=== PATIENT | female | born 1950 | race Caucasian/White ===

== ENCOUNTER → 2018-08-17 | Outpatient (CLI) | payer MEDICARE, OTHER ==
--- NOTE | 2018-08-17 13:04 | CT ---
EXAMINATION TYPE: CT chest wo con DATE OF EXAM: 08/17/2018 COMPARISON: Chest x-ray October 11, 2010 HISTORY: interstitial pulmonary disease CT DLP: 155 mGycm. Automated Exposure Control for Dose Reduction was Utilized. TECHNIQUE: CT scan of the thorax is performed without IV contrast. High-resolution protocol with 1 m m sequences obtained in 10 mm intervals in both prone and supine positioning. FINDINGS: LUNGS: Mild to moderate by apical pleural/parenchymal scarring is present. There is mild linear scarr ing in the lingula near diaphragm. No additional suspicious reticulation or fibrosis is identified bi laterally. No pleural effusion or pneumothorax is seen. No suspicious masses are identified. No signi ficant bronchiectasis. MEDIASTINUM: Lack of IV contrast is noted to limit evaluation for mediastinal and especially hilar ad enopathy. There are no definitive greater than 1 cm hilar or mediastinal lymph nodes. No cardiomega ly or pericardial effusion is seen. Post CABG changes with mediastinal clips and sternal wires is pre sent. There is dual lead pacemaker noted. Ascending aorta measures up to 3.7 cm in diameter. Incident al 1 cm right thyroid nodule axial image 4 warrants follow-up. There is moderate calcified plaque of aorta extending into branch vessels. OTHER: Moderate to severe multilevel spurring in the thoracic spine is noted. Levoconvex scoliosis c entered upper to mid lumbar spine on localizer is seen. Cholecystectomy clips are noted on localizer. IMPRESSION: Mild to moderate biapical parenchymal scarring. Mild linear lingular scarring. No signifi cant interstitial scarring or reticulation otherwise bilaterally. No acute pulmonary process noted.
== END | disposition home or self-care (01) ==
LOC: RADCTMAIN 11:59
PROVIDERS: ATTEND Internal Medicine Critical Care Medicine
DX: J98.4 Other disorders of lung (principal)
CPT/HCPCS: 71250

== ENCOUNTER 2018-12-07 18:49 | Inpatient (IN) | payer MEDICARE, OTHER ==
--- NOTE | 2018-12-07 20:49 | ED ---
General Adult HPI - General Chief complaint: Recheck/Abnormal Lab/Rx Stated complaint: Dehydrated, weakness Time Seen by Provider: 12/07/18 18:58 Source: patient Mode of arrival: EMS Limitations: no limitations - History of Present Illness Initial comments: 68-year-old female patient presents to the emergency department today as a transfer from [facility] for evaluation of generalized weakness, anemia , dehydration. Patient has been having increased intermittent diarrhea over the last couple of weeks after taking antibiotics for dental infection. Patient presented to the ER today because she was unable to wheel herself in her wheelchair due to weakness. Patient states she is also been feeling dizzy. Patient does have history of iron deficiency anemia, has had have blood transfusion in the past. Hemoglobin was low at 8.6 at the other hospital. Patient's BUN and creatinine were also elevated. She denies any hematochezia or melena. Denies any hematemesis. Patient denies any recent rash, fever, chills, shortness breath, chest pain, abdominal pain, nausea, vomiting, diarrhea , constipation, back pain, numbness, tingling, hematuria, dysuria, urinary urgency, urinary frequency, headache, visual changes, or any other complaints. - Related Data Home Medications Medication Instructions Recorded Confirmed DULoxetine HCL [Cymbalta] 60 mg PO DAILY 09/09/17 12/07/18 Ezetimibe [Zetia] 10 mg PO DAILY 09/09/17 12/07/18 Ferrous Sulfate [Iron (65 MG 325 mg PO BID 09/09/17 12/07/18 Elemental)] Isosorbide Mononitrate ER [Imdur] 60 mg PO DAILY 09/09/17 12/07/18 Losartan Potassium 100 mg PO DAILY 09/09/17 12/07/18 Omeprazole 20 mg PO BID 09/09/17 12/07/18 Ranitidine HCl [Zantac] 150 mg PO BID 09/09/17 12/07/18 Simvastatin [Zocor] 40 mg PO HS 09/09/17 12/07/18 Clopidogrel Bisulfate [Plavix] 75 mg PO DAILY 12/07/18 12/07/18 Metoprolol Tartrate [Lopressor] 50 mg PO BID 12/07/18 12/07/18 amLODIPine [Norvasc] 10 mg PO DAILY 12/07/18 12/07/18 metFORMIN HCL 1,000 mg PO BID 12/07/18 12/07/18 Allergies Allergy/AdvReac Type Severity Reaction Status Date / Time erythromycin base AdvReac Rash/Hives Verified 12/07/18 20:11 gabapentin AdvReac Rash/Hives Verified 12/07/18 20:11 kiwi AdvReac Abdominal Verified 12/07/18 20:11 Pain latex AdvReac Rash/Hives Verified 12/07/18 20:11 Review of Systems ROS Statement: Those systems with pertinent positive or pertinent negative responses have been documented in the HPI. ROS Other: All systems not noted in ROS Statement are negative. Past Medical History Past Medical History: Blood Disorder, Coronary Artery Disease (CAD), Chest Pain / Angina, Diabetes Mellitus, GERD/Reflux, GI Bleed, Hyperlipidemia, Hypertension , Memory Impairment, Thyroid Disorder Additional Past Medical History / Comment(s): Sclerosis, Raynauds, Iron Deficiency Anemia, reoccuring urinary tract infections, anemia, bronchitis, pt. states she recently has noticed she is having some short term memory loss as well as difficulty swallowing, raynauds syndrome History of Any Multi-Drug Resistant Organisms: None Reported Past Surgical History: Coronary Bypass/CABG, Heart Catheterization, Heart Catheterization With Stent, Hysterectomy, Pacemaker Additional Past Surgical History / Comment(s): Bilateral BKA, Triple Bypass 2011 , Pacemaker Past Anesthesia/Blood Transfusion Reactions: No Reported Reaction Date of Last Stent Placement:: w Type of Cardiac Device: Permanent Pacemaker Device Placement Date:: unknown Past Psychological History: Anxiety, Depression Smoking Status: Never smoker - Past Family History Mother Family Medical History: Cancer Additional Family Medical History / Comment(s): colon cancer Father Family Medical History: Myocardial Infarction ([place]) General Exam Limitations: no limitations General appearance: alert, in no apparent distress, other (Physical well- developed, well-nourished elderly female patient in no acute distress. Vital signs upon presentation are temperature 98.4F, pulse 102, respirations 18, blood pressure 120/59, pulse ox 98% on room air) Eye exam: Present: normal appearance, PERRL, EOMI. Absent: scleral icterus, conjunctival injection, periorbital swelling ENT exam: Present: normal exam, normal oropharynx, mucous membranes moist Respiratory exam: Present: normal lung sounds bilaterally. Absent: respiratory distress, wheezes, rales, rhonchi, stridor Cardiovascular Exam: Present: regular rate, normal rhythm, normal heart sounds. Absent: systolic murmur, diastolic murmur, rubs, gallop, clicks GI/Abdominal exam: Present: soft, normal bowel sounds. Absent: distended, tenderness, guarding, rebound, rigid Neurological exam: Present: alert, oriented X3, CN II-XII intact Psychiatric exam: Present: normal affect, normal mood Skin exam: Present: warm, dry, intact, normal color. Absent: rash Course Vital Signs 12/07/18 12/07/18 12/07/18 18:57 21:29 23:11 Temperature 98.4 F 97.3 F L Pulse Rate 102 H 99 103 H Respiratory 18 18 18 Rate Blood Pressure 120/59 119/58 120/55 O2 Sat by Pulse 98 97 98 Oximetry Medical Decision Making - Medical Decision Making 68-year-old female patient presents to the emergency department today as a transfer from [facility] for anemia, dehydration, and weakness. Physical examination did reveal generalized weakness and skin pallor. Abdomen was soft and nontender. Patient did report diarrhea frequently since taking antibiotics for dental infection, C. diff has been ordered. Labs reviewed and did reveal a hemoglobin of 7.7 which is decreased from 8.6 at [facility]. BUN and creatinine have improved from 44-32, creatinine is now normal. My attending Dr. Logan was in to see and evaluate the patient. He did discuss the case with Dr. Baig. Plan was to discharge patient home however both patient and family member are very uncomfortable with discharge given the degree of weakness and the hgb level. Patient will be admitted for observation. We will provide IV hydration to correct dehydration and repeat labs in the morning. - Lab Data Result diagrams: 12/07/18 20:19 12/07/18 20:19 Lab Results 12/07/18 12/07/18 Range/Units 20:19 20: WBC 5.2 (3.8-10.6) k/uL RBC 3.23 L (3.80-5.40) m/uL Hgb 7.7 L (11.4-16.0) gm/dL Hct 26.6 L (34.0-46.0) % MCV 82.3 (80.0-100.0) fL MCH 24.0 L (25.0-35.0) pg MCHC 29.1 L (31.0-37.0) g/dL RDW 17.9 H (11.5-15.5) % Plt Count 258 (150-450) k/uL Neutrophils % 71 % Lymphocytes % 19 % Monocytes % 5 % Eosinophils % 2 % Basophils % 1 % Neutrophils # 3.6 (1.3-7.7) k/uL Lymphocytes # 1.0 (1.0-4.8) k/uL Monocytes # 0.3 (0-1.0) k/uL Eosinophils # 0.1 (0-0.7) k/uL Basophils # 0.0 (0-0.2) k/uL Manual Slide Review Performed Polychromasia Present Hypochromasia Marked Poikilocytosis Moderate Poikilocytosis (manual Present Anisocytosis Slight Ovalocytes Present Sodium 142 (137-145) mmol/L Potassium 4.3 (3.5-5.1) mmol/L Chloride 116 H (98-107) mmol/L Carbon Dioxide 15 L (22-30) mmol/L Anion Gap 11 mmol/L BUN 32 H (7-17) mg/dL Creatinine 0.92 (0.52-1.04) mg/dL Est GFR (CKD-EPI)AfAm 74 (>60 ml/min/1.73 sqM) Est GFR (CKD-EPI)NonAf 64 (>60 ml/min/1.73 sqM) Glucose 100 H (74-99) mg/dL Calcium 8.4 (8.4-10.2) mg/dL Total Bilirubin 0.4 (0.2-1.3) mg/dL AST 22 (14-36) U/L ALT 25 (9-52) U/L Alkaline Phosphatase 76 (38-126) U/L Total Protein 5.6 L (6.3-8.2) g/dL Albumin 3.2 L (3.5-5.0) g/dL Disposition Clinical Impression: Symptomatic anemia, Dehydration, Diarrhea Disposition: ADMITTED IP TO THIS [facility] Condition: Serious Decision to Admit Reason: Admit from EC Decision Date: 12/07/18 Decision Time: 22:40
[2018-12-07 20:54] LABS: Albumin 3.2 g/dL (3.5-5.0); Calcium 8.4 mg/dL (8.4-10.2); Potassium 4.3 mmol/L (3.5-5.1); Total Bilirubin 0.4 mg/dL (0.2-1.3); Total Protein 5.6 g/dL (6.3-8.2)
[2018-12-07 21:03] LABS: Anisocytosis Slight; Basophils % (A) 1 %; Eosinophils # (A) 0.1 k/uL (0-0.7); Eosinophils % (A) 2 %; HCT 26.6 % (34.0-46.0); HGB 7.7 gm/dL (11.4-16.0); Hypochromasia Marked; Lymphocytes % (A) 19 %; MCHC 29.1 g/dL (31.0-37.0); MCV 82.3 fL (80.0-100.0); Mean Platelet Volume 7.6; Monocytes # (A) 0.3 k/uL (0-1.0); Monocytes % (A) 5 %; Neutrophils # (A) 3.6 k/uL (1.3-7.7); Neutrophils % (A) 71 %; Platelet Count 258 k/uL (150-450); Poikilocytosis Moderate; RBC 3.23 m/uL (3.80-5.40); RDW 17.9 % (11.5-15.5); WBC 5.2 k/uL (3.8-10.6)
[2018-12-07 21:32] LABS: Ovalocytes Present; Poikilocytosis (M) Present; Polychromasia Present
[2018-12-07] MEDS ORDERED: NALOXONE 0.4 MG/ML 1 ML VIAL IV PRN (22:40)
[2018-12-07] MEDS ORDERED: ACETAMINOPHEN TAB 325 MG TAB PO PRN (22:40)
[2018-12-07] MEDS: SODIUM CHLORIDE 0.9% 1,000 ML IV SCH (23:10)
[2018-12-08 07:21] LABS: Glucose,Whole Blood 81 mg/dL (75-99)
[2018-12-08 08:16] LABS: Anisocytosis Slight; Basophils % (A) 0 %; Eosinophils # (A) 0.2 k/uL (0-0.7); Eosinophils % (A) 4 %; HCT 26.9 % (34.0-46.0); HGB 7.7 gm/dL (11.4-16.0); Hypochromasia Marked; Lymphocytes % (A) 18 %; MCH 24.6 pg (25.0-35.0); MCHC 28.7 g/dL (31.0-37.0); MCV 85.6 fL (80.0-100.0); Mean Platelet Volume 7.1; Monocytes # (A) 0.4 k/uL (0-1.0); Monocytes % (A) 7 %; Neutrophils # (A) 3.6 k/uL (1.3-7.7); Neutrophils % (A) 68 %; Platelet Count 285 k/uL (150-450); Poikilocytosis Moderate; RBC 3.15 m/uL (3.80-5.40); RDW 17.6 % (11.5-15.5); WBC 5.3 k/uL (3.8-10.6)
[2018-12-08] MEDS: INSULIN ASPART (NovoLOG) 100 UNIT/ML VIAL SQ SCH ×4 (09:15→22:33)
[2018-12-08] MEDS: SODIUM CHLORIDE 0.9% 1,000 ML IV SCH ×2 (09:36→22:43)
[2018-12-08 11:50] LABS: Glucose,Whole Blood 92 mg/dL (75-99)
[2018-12-08 12:06] VITALS: BMI 49.1
[2018-12-08] MEDS: METOPROLOL TARTRATE 50 MG TAB PO SCH ×2 (12:34→22:22)
[2018-12-08] MEDS: FAMOTIDINE 20 MG TAB PO SCH ×2 (12:34→22:06)
[2018-12-08] MEDS: metFORMIN 500 MG TAB PO SCH ×2 (12:34→22:06)
[2018-12-08] MEDS: LOSARTAN 50 MG TAB PO SCH (12:35)
[2018-12-08] MEDS: DULoxetine HCL 60 MG CAPSULE.DR PO SCH (12:35)
[2018-12-08] MEDS: amLODIPine 10 MG TAB PO SCH (12:35)
[2018-12-08] MEDS: ISOSORBIDE MONONITRATE ER 60 MG TAB.ER.24H PO SCH (12:35)
[2018-12-08] MEDS: CLOPIDOGREL 75 MG TAB PO SCH (12:35)
[2018-12-08] MEDS: PANTOPRAZOLE 40 MG TABLET PO SCH ×2 (12:35→22:27)
[2018-12-08] MEDS: EZETIMIBE 10 MG TAB PO SCH (12:36)
[2018-12-08 15:14] LABS: Reticulocyte % 2.1 % (0.5-2.0)
[2018-12-08 17:05] LABS: Glucose,Whole Blood 132 mg/dL (75-99)
[2018-12-08 18:45] LABS: Iron Saturation 2.86 (12.00-45.00)
--- NOTE | 2018-12-08 20:00 | P.CONS ---
History of Present Illness - Reason for Consult Consult date: 12/08/18 anemia Requesting physician: Malcolm Baig - History of Present Illness Ms. Cervantes is a very pleasant 68-year-old female transferred from [place] where she was admitted for progressive weakness and fatigue. The patient recently took antibiotics for a dental infection, was experiencing diarrhea and over the last several days she became progressively weaker leading her to seek medical attention. Patient was found to be anemic so she was admitted and transferred. Patient has had intermittent episodes of anemia. There is documentation of Hgb in the 7-8 range in this EMR since 2016. Patient states being anemic since at least 2012, diagnosed with iron deficiency, followed for a very long time with Dr. Alan for gastrointestinal bleeding/history of angioectasias. Patient's last colonoscopy was in [place] in 2015 or , her most recent EGD was in 2016. Patient states that her stools used to be green to black due to the oral iron, she has noticed lately her stools are more brown. Patient denies any nose bleeding, gum bleeding, hemoptysis, hematuria, in October she states her hemoglobin was in the 11 range, she has been holding a decent hemoglobin between 11 and 12 for quite some time. Patient is on Plavix for cardiac condition. Patient's mother had colon cancer at 60, her sister had colon cancer diagnosed at 50, she had a brother with esophageal cancer at age 60. Review of Systems 14 point review of systems is negative except as stated in HPI Past Medical History Past Medical History: Blood Disorder, Coronary Artery Disease (CAD), Chest Pain / Angina, Diabetes Mellitus, GERD/Reflux, GI Bleed, Hyperlipidemia, Hypertension , Memory Impairment, Thyroid Disorder Additional Past Medical History / Comment(s): Sclerosis, Raynauds, Iron Deficiency Anemia, reoccuring urinary tract infections, anemia, bronchitis, pt. states she recently has noticed she is having some short term memory loss as well as difficulty swallowing, raynauds syndrome History of Any Multi-Drug Resistant Organisms: None Reported Past Surgical History: Coronary Bypass/CABG, Heart Catheterization, Heart Catheterization With Stent, Hysterectomy, Pacemaker Additional Past Surgical History / Comment(s): Bilateral BKA, Triple Bypass 2011 , Pacemaker Past Anesthesia/Blood Transfusion Reactions: No Reported Reaction Date of Last Stent Placement:: uknown Type of Cardiac Device: Permanent Pacemaker Device Placement Date:: unknown Past Psychological History: Anxiety, Depression Smoking Status: Never smoker - Past Family History Mother Family Medical History: Cancer Additional Family Medical History / Comment(s): colon cancer Father Family Medical History: Myocardial Infarction ([place]) Medications and Allergies Home Medications Medication Instructions Recorded Confirmed Type DULoxetine HCL [Cymbalta] 60 mg PO DAILY 09/09/17 12/07/18 History Ezetimibe [Zetia] 10 mg PO DAILY 09/09/17 12/07/18 History Ferrous Sulfate [Iron (65 MG 325 mg PO BID 09/09/17 12/07/18 History Elemental)] Isosorbide Mononitrate ER [Imdur] 60 mg PO DAILY 09/09/17 12/07/18 History Losartan Potassium 100 mg PO DAILY 09/09/17 12/07/18 History Omeprazole 20 mg PO BID 09/09/17 12/07/18 History Ranitidine HCl [Zantac] 150 mg PO BID 09/09/17 12/07/18 History Simvastatin [Zocor] 40 mg PO HS 09/09/17 12/07/18 History Clopidogrel Bisulfate [Plavix] 75 mg PO DAILY 12/07/18 12/07/18 History Metoprolol Tartrate [Lopressor] 50 mg PO BID 12/07/18 12/07/18 History amLODIPine [Norvasc] 10 mg PO DAILY 12/07/18 12/07/18 History metFORMIN HCL 1,000 mg PO BID 12/07/18 12/07/18 History Allergies Allergy/AdvReac Type Severity Reaction Status Date / Time erythromycin base AdvReac Rash/Hives Verified 12/07/18 20:11 gabapentin AdvReac Rash/Hives Verified 12/07/18 20:11 kiwi AdvReac Abdominal Verified 12/07/18 20:11 Pain latex AdvReac Rash/Hives Verified 12/07/18 20:11 Physical Exam Vitals: Vital Signs Temp Pulse Pulse Resp BP BP Pulse Ox 12/08/18 15:31 98.2 F 84 18 127/77 12/08/18 15:00 98.8 F 84 17 134/69 97 12/08/18 13:26 98.2 F 90 17 144/79 98 12/08/18 11:21 98.4 F 103 H 16 129/77 97 12/08/18 10:51 98.2 F 109 H 17 147/81 96 12/08/18 10:41 97.8 F 102 H 16 130/76 98 12/08/18 10:38 98.2 F 103 H 17 127/76 12/08/18 07:00 97.5 F L 102 H 16 138/71 99 12/07/18 23:40 97.4 F L 91 16 117/47 98 12/07/18 23:11 97.3 F L 103 H 18 120/55 98 12/07/18 21:29 99 18 119/58 97 Intake and Output 12/08/18 12/08/18 12/08/18 06:59 14:59 22:59 Intake Total 640 810 294 Balance 640 810 294 Intake: Intake, IV Titration 640 Amount Sodium Chloride 0.9% 1, 640 000 ml @ 80 mls/hr IV . [id number] [facility] Rx#:[id number] Oral 500 294 Blood Product 310 Rc Pheresis 2 As3 Unit 310 [id number] Other: Voiding Method Bedpan Bedpan # Voids 2 1 # Bowel Movements 1 Weight 130 kg - Constitutional General appearance: average body habitus, cooperative, no acute distress - EENT Eyes: anicteric sclerae ENT: hearing grossly normal, normal oropharynx - Neck Neck: no lymphadenopathy - Respiratory Respiratory: bilateral: CTA - Cardiovascular Rhythm: regular Heart sounds: normal: S1, S2 Abnormal Heart Sounds: no systolic murmur, no diastolic murmur, no rub, no S3 Gallop, no S4 Gallop, no click, no other leg Peripheral Edema: bilateral: None (bilateral lower extremity amputee) - Gastrointestinal General gastrointestinal: no absent bowel sounds, no decreased bowel sounds, no distended, no hepatomegaly, no hyperactive bowel sounds, normal bowel sounds, no organomegaly, no rigid, no scaphoid, soft, no splenomegaly, no tenderness, no umbilical hernia, no ventral hernia - Integumentary Integumentary: pale - Neurologic Neurologic: CNII-XII intact - Musculoskeletal Musculoskeletal: generalized weakness, strength equal bilaterally - Psychiatric Psychiatric: A&O x's 3, appropriate affect, intact judgment & insight Results CBC & Chem 7: 12/08/18 07:45 12/07/18 20:19 Labs: Abnormal Lab Results - Last 24 Hours (Table) 12/07/18 12/07/18 12/08/18 Range/Units 20:19 20:19 00:45 RBC 3.23 L (3.80-5.40) m/uL Hgb 7.7 L (11.4-16.0) gm/dL Hct 26.6 L (34.0-46.0) % MCH 24.0 L (25.0-35.0) pg MCHC 29.1 L (31.0-37.0) g/dL RDW 17.9 H (11.5-15.5) % Retic Count (0.5-2.0) % Chloride 116 H (98-107) mmol/L Carbon Dioxide 15 L (22-30) mmol/L BUN 32 H (7-17) mg/dL Glucose 100 H (74-99) mg/dL POC Glucose (mg/dL) (75-99) mg/dL Iron (50-170) ug/dL Iron Saturation (12.00-45.00) Total Protein 5.6 L (6.3-8.2) g/dL Albumin 3.2 L (3.5-5.0) g/dL Crossmatch See Detail 12/08/18 12/08/18 12/08/18 Range/Units 07:45 07:45 07:45 RBC 3.15 L (3.80-5.40) m/uL Hgb 7.7 L (11.4-16.0) gm/dL Hct 26.9 L (34.0-46.0) % MCH 24.6 L (25.0-35.0) pg MCHC 28.7 L (31.0-37.0) g/dL RDW 17.6 H (11.5-15.5) % Retic Count 2.1 H (0.5-2.0) % Chloride (98-107) mmol/L Carbon Dioxide (22-30) mmol/L BUN (7-17) mg/dL Glucose (74-99) mg/dL POC Glucose (mg/dL) (75-99) mg/dL Iron 9 L (50-170) ug/dL Iron Saturation 2.86 L (12.00-45.00) Total Protein (6.3-8.2) g/dL Albumin (3.5-5.0) g/dL Crossmatch 12/08/18 Range/Units 17:03 RBC (3.80-5.40) m/uL Hgb (11.4-16.0) gm/dL Hct (34.0-46.0) % MCH (25.0-35.0) pg MCHC (31.0-37.0) g/dL RDW (11.5-15.5) % Retic Count (0.5-2.0) % Chloride (98-107) mmol/L Carbon Dioxide (22-30) mmol/L BUN (7-17) mg/dL Glucose (74-99) mg/dL POC Glucose (mg/dL) 132 H (75-99) mg/dL Iron (50-170) ug/dL Iron Saturation (12.00-45.00) Total Protein (6.3-8.2) g/dL Albumin (3.5-5.0) g/dL Crossmatch Assessment and Plan (1) Normocytic hypochromic anemia Narrative/Plan: Suspect acute drop in patient's hemoglobin may be due to irritation in the gastrointestinal tract from diarrhea. Gastroenterology has been consulted, patient is very familiar with Dr. Alan. We will await her evaluation and recommendations. Patient has been transfused, hemoglobin today is 7.7. Iron studies have been ordered. Patient states that she has had a real allergic reaction to venofer in the past, it was anaphylaxis. We will follow up with patient's iron studies for further discussion as how to best supplement. Current Visit: Yes Status: Chronic Priority: Medium Code(s): D50.9 - IRON DEFICIENCY ANEMIA, UNSPECIFIED SNOMED Code(s): 03217541
[2018-12-08 21:05] LABS: Glucose,Whole Blood 151 mg/dL (75-99)
--- NOTE | 2018-12-08 22:04 | HP ---
HISTORY AND PHYSICAL DATE OF ADMISSION: December 07, 2018. DATE OF SERVICE: December 08, 2018 PRESENTING COMPLAINT: Weak and tired. HISTORY OF PRESENTING COMPLAINT: This is a very pleasant 68-year-old patient who follows with Dr. Soto. The patient has a longstanding history of anemia and has been worked up extensively including by Dr. Alan who 2 years ago did an EGD. The patient also seen by Dr. Taylor from Hematology. Per the patient and daughter, no obvious cause was noted. The patient's hemoglobin was 11.2 in October of this year and was feeling weak and tired, went down to outside hospital. Hemoglobin did drop down to 7.6. The patient has underlying sclerosis and does get a significant epigastric burning. The patient recently ARDS, had some diarrhea, has been feeling more weak and tired and run down around. Given history of coronary artery disease, a unit of blood was ordered earlier and consultation to both Gastroenterology and Hematology was done. Also given IV fluids. Denies any fever and chills. Denies any black stools. REVIEW OF SYSTEMS: CONSTITUTIONAL: Tired, decreased appetite. HEENT: None. RESPIRATORY: None. CARDIOVASCULAR: None. GENITOURINARY: None. MUSCULOSKELETAL: Aches and pains in the joints. DERMATOLOGICAL: Tight fingers PSYCHIATRY: Slightly anxious. NEUROLOGICAL: Anxiety and depression. PAST MEDICAL HISTORY: Coronary artery disease, diabetes, GERD, hyperlipidemia, hypertension, hypothyroid, sclerosis, Raynaud, iron deficiency anemia. PAST SURGICAL HISTORY: Coronary artery bypass, cardiac cath with stent, hysterectomy, bilateral below-knee amputation, triple bypass in 2011, pacemaker. PSYCH HISTORY: Anxiety and depression, lives with her . Does not smoke or drink alcohol. FAMILY HISTORY: Colon cancer. HOME MEDICATIONS: 1. Metformin 1000 mg b.i.d. 2. Norvasc 10 mg p.o. daily. 3. Zocor 40 mg q.h.s. 4. Zantac 150 mg p.o. b.i.d. 5. Omeprazole 20 mg b.i.d. 6. Lopressor 50 mg b.i.d. 7. Losartan 100 mg p.o. daily. 8. Imdur ER 60 mg p.o. daily. 9. Iron 325 p.o. b.i.d. 10.Zetia 10 mg p.o. daily. 11.Cymbalta 60 mg p.o. daily. 12.Plavix 75 mg p.o. daily. ALLERGIES: TO ERYTHROMYCIN, GABAPENTIN, KIWI, LATEX. PHYSICAL EXAMINATION: VITAL SIGNS: On examination vital signs on presentation: Temperature 98.4, pulse 102. Respiration 18, blood pressure 120/59, pulse 98% on room air. GENERAL APPEARANCE: Average build, lying in bed, tired-appearing. EYES: Pupils equal. Conjunctivae pale. HEENT is receding hairline, some telangiectasia on the lips. NECK: JVD not raised. Mass not palpable. Respiratory effort normal. Lungs decreased breath sounds. Slightly decreased breath sounds. CARDIOVASCULAR: First and second sounds normal. No edema. ABDOMEN: Soft, nontender. Liver and spleen not palpable. LYMPHATICS: No lymph nodes palpable in the neck and axilla. PSYCHIATRY: Alert and oriented x3. Mood and affect anxious-appearing. DERMATOLOGICAL: Tightening of skin especially of the fingers. INVESTIGATIONS: White count 5.2, hemoglobin 7.7, platelets 258. Potassium 4.3, BUN 32, creatinine 0.92, albumin 3.2. ASSESSMENT: 1. Acute on chronic normocytic anemia. The patient has had a workup previously. Need to rule out a gastrointestinal bleed. At the same time, immune hemolysis needs to be ruled out. The patient does have a elevated reticulocyte count. 2. Metabolic acidosis. 3. Coronary artery disease with stent. 4. Diabetes mellitus type 2 on oral hypoglycemic. 5. Severe gastroesophageal reflux disease. 6. Hyperlipidemia. 7. Essential hypertension. 8. Scleroderma with systemic features. PLAN: Consultation has been made to Gastroenterology and Hematology. The patient will be transfused blood given her symptoms and underlying coronary artery disease to improve her symptoms. The patient is already on H2 ravi and PPI. PPI also will be given. IV fluids. Care was discussed with the patient and daughter at the bedside. Copy to Dr. Soto. MMODL / IJN: [id number] /
[2018-12-08] MEDS: ATORVASTATIN 20 MG TAB PO SCH (22:05)
[2018-12-08] MEDS: FERROUS SULFATE 325 MG TAB PO SCH (22:30)
[2018-12-09 07:22] LABS: Glucose,Whole Blood 135 mg/dL (75-99)
[2018-12-09 07:28] VITALS: RESP 16
[2018-12-09] MEDS: INSULIN ASPART (NovoLOG) 100 UNIT/ML VIAL SQ SCH ×4 (07:48→21:43)
[2018-12-09] MEDS: LOSARTAN 50 MG TAB PO SCH (07:56)
[2018-12-09] MEDS: FAMOTIDINE 20 MG TAB PO SCH ×2 (07:56→21:48)
[2018-12-09] MEDS: METOPROLOL TARTRATE 50 MG TAB PO SCH ×2 (07:57→21:48)
[2018-12-09] MEDS: PANTOPRAZOLE 40 MG TABLET PO SCH ×2 (07:57→21:48)
[2018-12-09] MEDS: metFORMIN 500 MG TAB PO SCH ×2 (07:57→21:48)
[2018-12-09] MEDS: DULoxetine HCL 60 MG CAPSULE.DR PO SCH (07:57)
[2018-12-09] MEDS: ISOSORBIDE MONONITRATE ER 60 MG TAB.ER.24H PO SCH (07:57)
[2018-12-09] MEDS: FERROUS SULFATE 325 MG TAB PO SCH ×2 (07:57→21:47)
[2018-12-09] MEDS: EZETIMIBE 10 MG TAB PO SCH (07:57)
[2018-12-09] MEDS: CLOPIDOGREL 75 MG TAB PO SCH (07:57)
[2018-12-09] MEDS: amLODIPine 10 MG TAB PO SCH (07:57)
[2018-12-09] MEDS: SODIUM CHLORIDE 0.9% 1,000 ML IV SCH ×2 (07:58→23:57)
[2018-12-09 09:11] LABS: Anisocytosis Slight; Basophils % (A) 0 %; Eosinophils # (A) 0.4 k/uL (0-0.7); Eosinophils % (A) 7 %; HCT 27.1 % (34.0-46.0); HGB 7.9 gm/dL (11.4-16.0); Hypochromasia Marked; Lymphocytes # (A) 0.8 k/uL (1.0-4.8); Lymphocytes % (A) 15 %; MCH 24.6 pg (25.0-35.0); MCHC 29.3 g/dL (31.0-37.0); Mean Platelet Volume 7.8; Monocytes # (A) 0.3 k/uL (0-1.0); Monocytes % (A) 6 %; Neutrophils # (A) 3.8 k/uL (1.3-7.7); Neutrophils % (A) 69 %; Platelet Count 249 k/uL (150-450); Poikilocytosis Moderate; RBC 3.22 m/uL (3.80-5.40); RDW 17.4 % (11.5-15.5); WBC 5.4 k/uL (3.8-10.6)
[2018-12-09 09:19] LABS: Anion Gap 9 mmol/L; Blood Urea Nitrogen 11 mg/dL (7-17); Calcium 8.5 mg/dL (8.4-10.2); Carbon Dioxide 16 mmol/L (22-30); Chloride 116 mmol/L (98-107); Glucose 155 mg/dL (74-99); Potassium 3.9 mmol/L (3.5-5.1); Sodium 141 mmol/L (137-145)
--- NOTE | 2018-12-09 12:13 | P.CONS ---
History of Present Illness - Reason for Consult Consult date: 12/09/18 Anemia Requesting physician: Malcolm Baig - Chief Complaint Weakness anemia dehydration - History of Present Illness 68-year-old female patient of Dr. Soto transferred from [facility] with evaluation for generalized weakness anemia dehydration. Past medical history of bilateral BKA, scleroderma, diabetes, GERD, hyperlipidemia, CAD with PCI stent maintained on Plavix, chronic anemia extensively worked up in the past with EGD colonoscopy without obvious cause, gastric angiectasia in 2012. Intermittent nonbloody diarrhea for the last few weeks after receiving antibiotics for recent dental infection. Denies overt bleeding such as hematemesis hematochezia melena. Denies abdominal pain. Transfer hemoglobin 7.7. MCV 85. Platelet 285. Retic count 2.1. Iron saturation 2.8%. Iron 9. TIBC 315. Ferritin 10.7. BUN 32. Creatinine 0.9. Received 1 unit of blood. When reviewing prior medical records averaging movement tends to be in the 7 range. EGD September 2017 for evaluation of symptomatic anemia with findings of scattered gastric angiectasia more predominant in the cardia and fundus of the stomach status post APC small hiatal hernia no evidence of esophageal stricture or esophagitis. Denies fever chills or overt symptoms of bleeding today. Review of Systems Constitutional: Denies fever, chills, sweats, weight gain, or loss. Generalized weakness. HEENT: Negative for migraines, blurred vision or loss, earaches, drainage, tinnitus, oral mucosal lesions, dysphagia, or odynophagia. CARDIAC: Negative for chest pain, arrhythmias, or palpitation. RESPIRATORY: Negative for shortness of breath, hemoptysis, cough, or sputum production. GI: See HPI for pertinent findings. : Negative for hematuria, urgency, frequency, polyuria, or dysuria. GYNc: Negative vaginal discharge. MUSCULOSKELETAL: Negative for muscle aches, swelling, arthritis, and arthralgias. NEUROLOGIC: Negative for stroke or TIA. ENDOCRINE: Negative for thyroid problems. SKIN: Negative for rash or itching. PSYCHIATRIC: Negative history for depression and anxiety Past Medical History Past Medical History: Blood Disorder, Coronary Artery Disease (CAD), Chest Pain / Angina, Diabetes Mellitus, GERD/Reflux, GI Bleed, Hyperlipidemia, Hypertension , Memory Impairment, Thyroid Disorder Additional Past Medical History / Comment(s): Sclerosis, Raynauds, Iron Deficiency Anemia, reoccuring urinary tract infections, anemia, bronchitis, pt. states she recently has noticed she is having some short term memory loss as well as difficulty swallowing, raynauds syndrome History of Any Multi-Drug Resistant Organisms: None Reported Past Surgical History: Coronary Bypass/CABG, Heart Catheterization, Heart Catheterization With Stent, Hysterectomy, Pacemaker Additional Past Surgical History / Comment(s): Bilateral BKA, Triple Bypass 2012 , Pacemaker Past Anesthesia/Blood Transfusion Reactions: No Reported Reaction Date of Last Stent Placement:: [place] Type of Cardiac Device: Permanent Pacemaker Device Placement Date:: unknown Past Psychological History: Anxiety, Depression Smoking Status: Never smoker - Past Family History Mother Family Medical History: Cancer Additional Family Medical History / Comment(s): colon cancer Father Family Medical History: Myocardial Infarction ([place]) Medications and Allergies Home Medications Medication Instructions Recorded Confirmed Type DULoxetine HCL [Cymbalta] 60 mg PO DAILY 09/09/17 12/07/18 History Ezetimibe [Zetia] 10 mg PO DAILY 09/09/17 12/07/18 History Ferrous Sulfate [Iron (65 MG 325 mg PO BID 09/09/17 12/07/18 History Elemental)] Isosorbide Mononitrate ER [Imdur] 60 mg PO DAILY 09/09/17 12/07/18 History Losartan Potassium 100 mg PO DAILY 09/09/17 12/07/18 History Omeprazole 20 mg PO BID 09/09/17 12/07/18 History Ranitidine HCl [Zantac] 150 mg PO BID 09/09/17 12/07/18 History Simvastatin [Zocor] 40 mg PO HS 09/09/17 12/07/18 History Clopidogrel Bisulfate [Plavix] 75 mg PO DAILY 12/07/18 12/07/18 History Metoprolol Tartrate [Lopressor] 50 mg PO BID 12/07/18 12/07/18 History amLODIPine [Norvasc] 10 mg PO DAILY 12/07/18 12/07/18 History metFORMIN HCL 1,000 mg PO BID 12/07/18 12/07/18 History Allergies Allergy/AdvReac Type Severity Reaction Status Date / Time erythromycin base AdvReac Rash/Hives Verified 12/07/18 20:11 gabapentin AdvReac Rash/Hives Verified 12/07/18 20:11 kiwi AdvReac Abdominal Verified 12/07/18 20:11 Pain latex AdvReac Rash/Hives Verified 12/07/18 20:11 Physical Exam Vitals: Vital Signs Temp Pulse Pulse Resp BP BP Pulse Ox 12/09/18 07:00 97.5 F L 76 16 129/69 98 12/09/18 03:09 14 12/09/18 02:01 97.8 F 85 17 113/65 97 12/08/18 19:40 97.9 F 84 17 123/69 98 12/08/18 15:31 98.2 F 84 18 127/77 12/08/18 15:00 98.8 F 84 17 134/69 97 12/08/18 13:26 98.2 F 90 17 144/79 98 12/08/18 11:21 98.4 F 103 H 16 129/77 97 12/08/18 10:51 98.2 F 109 H 17 147/81 96 12/08/18 10:41 97.8 F 102 H 16 130/76 98 12/08/18 10:38 98.2 F 103 H 17 127/76 Intake and Output 12/08/18 12/09/18 12/09/18 22:59 06:59 14:59 Intake Total 294 480 400 Balance 294 480 400 Intake: Intake, IV Titration 480 Amount Sodium Chloride 0.9% 1, 480 000 ml @ 80 mls/hr IV . [id number] [facility] Rx#:[id number] Oral 294 400 Other: Voiding Method Bedpan # Voids 1 1 1 # Bowel Movements 1 1 General appearance: The patient is alert, oriented, in no acute distress. HET: Head is normocephalic and atraumatic. Pupils are equal and reactive. Oropharynx is clear without lesions. Neck: Supple without lymphadenopathy. Trachea midline. Heart: S1 S2. Regular rate and rhythm. Lungs: No crackles or wheezes are heard. Abdomen: Soft, nontender, nondistended with bowel sounds. No peritoneal signs. No palpable organomegaly or masses. Extremities: Bilateral lower extremity amputation. Neurological: No focal deficits. Strength and sensation are grossly intact. Results CBC & Chem 7: 12/09/18 08:34 12/09/18 08:34 Labs: Abnormal Lab Results - Last 24 Hours (Table) 12/08/18 12/08/18 12/08/18 Range/Units 00:45 07:45 07:45 Retic Count 2.1 H (0.5-2.0) % POC Glucose (mg/dL) (75-99) mg/dL Iron 9 L (50-170) ug/dL Iron Saturation 2.86 L (12.00-45.00) Crossmatch See Detail 12/08/18 12/08/18 12/09/18 Range/Units 17:03 20:49 07:05 Retic Count (0.5-2.0) % POC Glucose (mg/dL) 132 H 151 H 135 H (75-99) mg/dL Iron (50-170) ug/dL Iron Saturation (12.00-45.00) Crossmatch Assessment and Plan (1) Symptomatic anemia Narrative/Plan: 68-year-old female with a history of bleeding angiectasia in the upper GI tract presents with symptomatic acute blood loss anemia. Recurrent upper GI bleeding angiectasia could not be excluded. Current Visit: Yes Status: Acute Code(s): D64.9 - ANEMIA, UNSPECIFIED SNOMED Code(s): 572199363 (2) Dehydration Current Visit: Yes Status: Acute Code(s): E86.0 - DEHYDRATION SNOMED Code( s): 17922685 (3) Diarrhea Current Visit: Yes Status: Acute Code(s): R19.7 - DIARRHEA, UNSPECIFIED SNOMED Code(s): 21076511 (4) Normocytic hypochromic anemia Current Visit: Yes Status: Chronic Priority: Medium Code(s): D50.9 - IRON DEFICIENCY ANEMIA, UNSPECIFIED SNOMED Code(s): 32146165 Plan: 1. Protonix 40 mg twice daily. CBC monitoring. EGD in a.m. hold morning dose of Plavix until EGD is completed. 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 The patient has indicated understanding and acceptance of the risks and procedures discussed. Thank you for this kind referral and the opportunity to participate in the care of your patient. This consultation was discussed with Dr. Chisholm. The impression and plan of care have been directed as dictated.
[2018-12-09] MEDS ORDERED: TEMAZEPAM 7.5 MG CAP PO PRN (14:24)
[2018-12-09] MEDS: SODIUM BICARBONATE TAB 650 MG TAB PO SCH ×2 (17:29→21:50)
[2018-12-09] MEDS ORDERED: LACTATED RINGERS 1,000 ML IV SCH (18:45)
[2018-12-09 19:23] LABS: Glucose,Whole Blood 175 mg/dL (75-99)
--- NOTE | 2018-12-09 19:41 | PN ---
PROGRESS NOTE DATE OF SERVICE: 12/09/2018 PRESENTING COMPLAINT: Weak and tired. INTERVAL HISTORY: This patient presented with severe anemia and did get a unit of blood. Feels a bit better today. Patient is on a full liquid diet. Plan is for EGD. REVIEW OF SYSTEMS: Done for constitutional, cardiovascular, GI, pulmonary; relevant findings as above. CURRENT MEDICATIONS: Reviewed. PHYSICAL EXAMINATION: Temperature 97.5, pulse 76, respiration 16, blood pressure 129/69, pulse ox 98% on room air. GENERAL APPEARANCE: Lying in bed. Tired-appearing. EYES: Pupils equal. Conjunctivae pale. NECK: JVD not raised. Mass not palpable. RESPIRATORY: Effort normal. LUNGS: Slightly decreased breath sounds. CARDIOVASCULAR: First and second sounds normal. No edema. ABDOMEN: Soft, non-tender. Liver and spleen not palpable. PSYCHIATRY: Alert and oriented x3. Mood and affect normal. DERMATOLOGICAL: Tightening of the skin, especially of the fingers. INVESTIGATIONS: White count 5.4, hemoglobin 7.9, potassium 3.9, BUN 11, creatinine 0.71. ASSESSMENT: 1. Acute on chronic normocytic anemia in a patient who has had iron deficiency anemia in the past, possibly from angiectasia. Awaiting EGD. 2. Metabolic acidosis. 3. Coronary artery disease with stent. 4. Diabetes mellitus, type 2, on oral hypoglycemic. 5. Severe gastroesophageal reflux disease. 6. Hyperlipidemia. 7. Essential hypertension. 8. Scleroderma with systemic features. PLAN: Continue current medication and treatment plan. Patient is somewhat feeling better. Hemoglobin is stable at 7.9. Will add sodium bicarbonate. MMODL / IJN: [id number] /
[2018-12-09] MEDS: ATORVASTATIN 20 MG TAB PO SCH (21:48)
[2018-12-10 07:15] LABS: Glucose,Whole Blood 118 mg/dL (75-99)
[2018-12-10] MEDS: INSULIN ASPART (NovoLOG) 100 UNIT/ML VIAL SQ SCH ×2 (07:30→12:08)
[2018-12-10] MEDS ORDERED: MIDAZOLAM 2 MG/2 ML VIAL ONE (08:00)
[2018-12-10] MEDS ORDERED: PROPOFOL 10 MG/ML 20 ML VIAL IV ONE (08:00)
[2018-12-10] MEDS ORDERED: LIDOCAINE 1% INJ 10MG/ML (20 ML MDV) ONE (08:00)
[2018-12-10] MEDS ORDERED: IV FLUID CONTINUATION 900 ML IV ONE (08:02)
--- NOTE | 2018-12-10 08:20 | P.PCN ---
Date of Procedure: 12/10/18 Procedure(s) Performed: BRIEF HISTORY: Patient is a 68-year-old, pleasant, white female, scheduled for an upper endoscopy as a part of evaluation of severe symptomatic anemia. Her last upper endoscopy was in September 2017 and she was noted to have gastric angiectasia. PROCEDURE PERFORMED: Esophagogastroduodenoscopy with Endo Clip placement and biopsy. PREOPERATIVE DIAGNOSIS: Severe symptomatic anemia. IV sedation per anesthesia. PROCEDURE: After informed consent was obtained, the patient was brought into the endoscopy unit. IV sedation was administered by Anesthesia under continuous monitoring. Initially the Olympus GIF-140 video endoscope was inserted into the mouth. Esophagus intubated without any difficulty. It was gradually advanced into the stomach and duodenum and carefully examined. The bulb and the second part of the duodenum appeared normal. Biopsies were done from the duodenum to rule out celiac disease. The scope at this time was withdrawn to the stomach, adequately insufflated with air, and upon careful examination, mucosa of the antrum, had mild erythema but no ulcerations seen. The body, cardia and the fundus appeared normal. There was an isolated 1 cm arterial venous malformation noted in the cardia of the stomach just distal to the hiatal hernia with some oozing and Endo Clip was placed. The scope was then withdrawn into the esophagus. There was a moderate size hiatal hernia noted. The GE junction was located at 33 cm from the incisors. The esophagus appeared normal. There were no erosions or ulcerations seen and the patient tolerated the procedure well. IMPRESSION: 1. 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 2. Moderate size hiatal hernia. RECOMMENDATIONS: The findings of this examination were discussed with the patient. Diet will be advanced as tolerated. If the hemoglobin remains stable she can be discharged home with outpatient follow-up in one to 2 weeks.
[2018-12-10 09:05] VITALS: BP 123/65; PULSE 78; TEMP 97.7
[2018-12-10] MEDS: ISOSORBIDE MONONITRATE ER 60 MG TAB.ER.24H PO SCH (09:34)
[2018-12-10] MEDS: EZETIMIBE 10 MG TAB PO SCH (09:34)
[2018-12-10] MEDS: LOSARTAN 50 MG TAB PO SCH (09:35)
[2018-12-10] MEDS: FERROUS SULFATE 325 MG TAB PO SCH (09:35)
[2018-12-10] MEDS: CLOPIDOGREL 75 MG TAB PO SCH (09:35)
[2018-12-10] MEDS: PANTOPRAZOLE 40 MG TABLET PO SCH (09:35)
[2018-12-10] MEDS: FAMOTIDINE 20 MG TAB PO SCH (09:35)
[2018-12-10] MEDS: SODIUM BICARBONATE TAB 650 MG TAB PO SCH ×2 (09:35→16:01)
[2018-12-10] MEDS: metFORMIN 500 MG TAB PO SCH (09:35)
[2018-12-10] MEDS: METOPROLOL TARTRATE 50 MG TAB PO SCH (09:35)
[2018-12-10] MEDS: amLODIPine 10 MG TAB PO SCH (09:36)
[2018-12-10] MEDS: DULoxetine HCL 60 MG CAPSULE.DR PO SCH (09:36)
[2018-12-10] MEDS ORDERED: LOPERAMIDE 2 MG CAP PO PRN (09:37)
[2018-12-10 11:51] LABS: Glucose,Whole Blood 150 mg/dL (75-99)
[2018-12-10 13:36] LABS: Anisocytosis Slight; HCT 30.4 % (34.0-46.0); HGB 8.9 gm/dL (11.4-16.0); Hypochromasia Marked; MCH 24.6 pg (25.0-35.0); MCHC 29.1 g/dL (31.0-37.0); MCV 84.5 fL (80.0-100.0); Mean Platelet Volume 7.8; Platelet Count 225 k/uL (150-450); Poikilocytosis Moderate; RDW 17.6 % (11.5-15.5); WBC 7.2 k/uL (3.8-10.6)
[2018-12-10 16:22] LABS: Glucose,Whole Blood 134 mg/dL (75-99)
--- NOTE | 2018-12-10 23:51 | DS ---
DISCHARGE SUMMARY DATE OF ADMISSION: 12/07/2018. DATE OF DISCHARGE: December 10, 2018. FINAL DIAGNOSES: 1. Acute gastrointestinal bleed from gastric AV malformation bleeding. 2. Metabolic acidosis. 3. Coronary artery disease with stent. 4. Diabetes mellitus type 2 on oral hypoglycemics. 5. Severe gastroesophageal reflux disease. 6. Hyperlipidemia. 7. Essential hypertension. 8. Scleroderma with systemic features. HOSPITAL COURSE: This very pleasant lady presented with weak and tired. Hemoglobin down to 7.7. The patient was transfused a unit of blood. Hemoglobin did come up to 8.9. The patient did undergo EGD, was found to have a bleeding AV malformation in the cardia that was clipped. The patient is now stable, tolerating a diet. PHYSICAL EXAMINATION: VITAL SIGNS: Temperature 97.7. Pulse 78, respirations 16, blood pressure 123/65, pulse ox 95% on room air. Lungs fair entry. ABDOMEN: Soft nontender. INVESTIGATIONS: Hemoglobin 8.9. CONSULTATION: Dr. Jeremiah Alan from GI, Dr. Taylor from Oncology. Discussion and discharge planning more than 35 minutes. DISCHARGE MEDICATIONS: 1. Cymbalta 60 mg a day. 2. Zetia 10 mg a day. 3. Iron 325 mg b.i.d. 4. Imdur ER 60 mg a day. 5. Losartan 100 mg a day. 6. Omeprazole 20 mg b.i.d. 7. Zantac 150 mg b.i.d. 8. Zocor 40 mg q.h.s. 9. Plavix 75 mg a day. 10.Lopressor 50 mg b.i.d. 11.Norvasc 10 mg a day. 12.Metformin 1000 mg b.i.d. 13.Sodium bicarbonate 650 mg t.i.d. Follow with Dr. Soto in 3 days, follow up with Dr. Alvaro Alan in 10 days. The patient should have a CBC done in a week's time through her family doctor. Copy to Dr. Soto. MMBETHANYL / SUSHIL: [id number] /
== END 2018-12-10 17:33 | disposition home or self-care (01) | DRG 300 ==
LOC: EC 18:49 → 4SSUR 22:40
PROVIDERS: ADMIT Hospitalist; ATTEND Hospitalist
PROC: 30233N1 Transfusion of Nonautologous Red Blood Cells into Peripheral Vein, Percutaneous Approach (ICD-10-PCS; 2018-12-08)
PROC: 0W3P8ZZ Control Bleeding in Gastrointestinal Tract, Via Natural or Artificial Opening Endoscopic (ICD-10-PCS; principal; 2018-12-10 07:50)
DX: Q27.33 Arteriovenous malformation of digestive system vessel (principal); D62 Acute posthemorrhagic anemia; E87.2 Acidosis; E03.9 Hypothyroidism, unspecified; E11.9 Type 2 diabetes mellitus without complications; E78.5 Hyperlipidemia, unspecified; E86.0 Dehydration; I10 Essential (primary) hypertension; I25.10 Atherosclerotic heart disease of native coronary artery without angina pectoris; I73.00 Raynaud's syndrome without gangrene; K21.9 Gastro-esophageal reflux disease without esophagitis; K44.9 Diaphragmatic hernia without obstruction or gangrene; M34.9 Systemic sclerosis, unspecified; Z79.02 Long term (current) use of antithrombotics/antiplatelets; Z79.84 Long term (current) use of oral hypoglycemic drugs; Z79.899 Other long term (current) drug therapy; Z80.0 Family history of malignant neoplasm of digestive organs; Z82.49 Family history of ischemic heart disease and other diseases of the circulatory system; Z89.511 Acquired absence of right leg below knee; Z89.512 Acquired absence of left leg below knee; Z90.710 Acquired absence of both cervix and uterus; Z95.1 Presence of aortocoronary bypass graft; Z95.5 Presence of coronary angioplasty implant and graft; Z88.1 Allergy status to other antibiotic agents; Z91.040 Latex allergy status; Z91.018 Allergy to other foods
CPT/HCPCS: 36415; 43239; 43255; 80048; 80053; 82607; 82728; 82747; 83540; 83550; 85025; 85027; 85045; 86850; 86870; 86880; 86900; 86901; 86902; 86920; 87324; 93005; 99285

== ENCOUNTER 2020-08-12 00:55 | Inpatient (IN) | payer MEDICARE, OTHER ==
[2020-08-12] MEDS ORDERED: PANTOPRAZOLE 40 MG/10 ML VIAL IVP STA (00:56)
--- NOTE | 2020-08-12 01:11 | ED ---
GI Bleed HPI - General Stated complaint: Weakness Time Seen by Provider: 08/12/20 00:56 Source: patient, EMS Mode of arrival: EMS Limitations: no limitations - History of Present Illness Initial comments: Svetlana is a pleasant 70-year-old female whoSince the emergency department todays a transfer from [facility]. Patient was seen at [facility] for evaluation of weakness and dark stools, hemoglobin was 4.7. Patient does have a history of an upper GI bleed for which she was hospitalized in November 2018. Patient states that 5 days ago she was prescribed Eliquis, patient states she thought she was prescribed this for her blood pressure. She does have a history of A. fib. She states she is noted that her stools are dark in color that she's been feeling more fatigued. She does state that she took Pepto one time this week but not daily and does not feel that this is causing the discoloration in her stools.patient denies any associated fever, chills, nausea, vomiting, change in urinary habits. - Related Data Home Medications Medication Instructions Recorded Confirmed DULoxetine HCL [Cymbalta] 60 mg PO DAILY 09/09/17 12/07/18 Ezetimibe [Zetia] 10 mg PO DAILY 09/09/17 12/07/18 Ferrous Sulfate [Iron (65 MG 325 mg PO BID 09/09/17 12/07/18 Elemental)] Isosorbide Mononitrate ER [Imdur] 60 mg PO DAILY 09/09/17 12/07/18 Losartan Potassium 100 mg PO DAILY 09/09/17 12/07/18 Omeprazole 20 mg PO BID 09/09/17 12/07/18 Ranitidine HCl [Zantac] 150 mg PO BID 09/09/17 12/07/18 Simvastatin [Zocor] 40 mg PO HS 09/09/17 12/07/18 Clopidogrel Bisulfate [Plavix] 75 mg PO DAILY 12/07/18 12/07/18 Metoprolol Tartrate [Lopressor] 50 mg PO BID 12/07/18 12/07/18 amLODIPine [Norvasc] 10 mg PO DAILY 12/07/18 12/07/18 metFORMIN HCL 1,000 mg PO BID 12/07/18 12/07/18 Previous Rx's Medication Instructions Recorded Sodium Bicarbonate Tab 650 mg PO TID #30 tab 12/10/18 Allergies Allergy/AdvReac Type Severity Reaction Status Date / Time erythromycin base AdvReac Rash/Hives Verified 12/07/18 20:11 gabapentin AdvReac Rash/Hives Verified 12/07/18 20:11 kiwi AdvReac Abdominal Verified 12/07/18 20:11 Pain latex AdvReac Rash/Hives Verified 12/07/18 20:11 Review of Systems ROS Statement: Those systems with pertinent positive or pertinent negative responses have been documented in the HPI. ROS Other: All systems not noted in ROS Statement are negative. Past Medical History Past Medical History: Blood Disorder, Coronary Artery Disease (CAD), Chest Pain / Angina, Diabetes Mellitus, GERD/Reflux, GI Bleed, Hyperlipidemia, Hypertension, Memory Impairment, Thyroid Disorder Additional Past Medical History / Comment(s): Sclerosis, Raynauds, Iron Deficiency Anemia, reoccuring urinary tract infections, anemia, bronchitis, pt. states she recently has noticed she is having some short term memory loss as well as difficulty swallowing, raynauds syndrome History of Any Multi-Drug Resistant Organisms: None Reported Past Surgical History: Coronary Bypass/CABG, Heart Catheterization, Heart Catheterization With Stent, Hysterectomy, Pacemaker Additional Past Surgical History / Comment(s): Bilateral BKA, Triple Bypass 2011, Pacemaker Past Anesthesia/Blood Transfusion Reactions: No Reported Reaction Date of Last Stent Placement:: Type of Cardiac Device: Permanent Pacemaker Device Placement Date:: unknown Past Psychological History: Anxiety, Depression Smoking Status: Never smoker Past Alcohol Use History: None Reported Past Drug Use History: None Reported - Past Family History Mother Family Medical History: Cancer Additional Family Medical History / Comment(s): colon cancer Father Family Medical History: Myocardial Infarction ([place]) General Exam - General Exam Comments Initial Comments: Physical Exam GENERAL: Chronically ill appearing, pale, no distress HENT: Normocephalic, Atraumatic. EYES: PERRL, EOMI Conjunctival pallor PULMONARY: Unlabored respirations. CARDIOVASCULAR: Irregularlly irregular, HR in 70s Cool pale extremities ABDOMEN: Non-distended SKIN: Pale : Deferred NEUROLOGIC: Alert and oriented - poor medical staff credentialing coordinator Normal speech MUSCULOSKELETAL: Moving all extremities with no apparent injury PSYCHIATRIC: No SI/HI Limitations: no limitations Course Vital Signs 08/12/20 00:56 Temperature 97.9 F Pulse Rate 75 Respiratory 16 Rate Blood Pressure 133/54 O2 Sat by Pulse 91 L Oximetry Medical Decision Making - Medical Decision Making Patient care discussed with transferring physician Patient was seen and evaluated upon arrival by EMS History obtained from patient and medical record Repeat labs obtained Patient was not transfused by outside hospital due to antibiodies detected in blood - 4u PRBC transfusion ordered here, lab notified Patient care discussed with Dr. Casanova who accepts patient to ICU for hemodynamically stable GI bleed with Hgb 4.7 Critical Care Time Critical Care Time: Yes Total Critical Care Time: 30 Critical Care Time: Critical Care Time 30 Critical care time was exclusive of separately billable procedures and treating other patients and teaching time. Critical care was necessary to treat or prevent imminent or life-threatening deterioration. Given the critical condition in which the patient arrived, the patient was immediately assessed by myself and the nurse, and cardiac monitoring initiated due to the potential for rapid decompensation of the patient's clinical condition. During the course of the patients stay, I spent a considerable amount of time at the bedside performing serial re-evaluations of the patient's hemodynamic and clinical status because of the recognized potential threat to life or limb in this condition. I then had a chance to review not only all of the available current laboratory and radiographic studies obtained today, but I also reviewed old records available to me at the time. Additionally, any ancillary information available including application developer records were reviewed. Sequential vital signs were obtained. Disposition Clinical Impression: Symptomatic anemia, GI hemorrhage Disposition: ADMITTED IP TO THIS [facility] Condition: Serious Referrals: Chance Soto MD [Primary Care Provider] - 1-2 days
[2020-08-12] MEDS ORDERED: NALOXONE 0.4 MG/ML 1 ML VIAL IV PRN (01:18)
[2020-08-12] MEDS: SODIUM CHLORIDE 0.9% 1,000 ML IV SCH ×2 (01:48→21:55)
[2020-08-12 01:51] LABS: Anisocytosis Moderate; Hypochromasia Marked; MCH 28.2 pg (25.0-35.0); MCHC 30.1 g/dL (31.0-37.0); MCV 93.9 fL (80.0-100.0); Macrocytosis Slight; Mean Platelet Volume 8.9; Platelet Count 216 k/uL (150-450); RBC 1.74 m/uL (3.80-5.40); RDW 21.5 % (11.5-15.5); WBC 9.8 k/uL (3.8-10.6)
[2020-08-12 01:54] LABS: HGB 4.9 gm/dL (11.4-16.0)
[2020-08-12 01:55] LABS: HCT 16.4 % (34.0-46.0)
[2020-08-12 02:03] LABS: Albumin 3.3 g/dL (3.5-5.0); Calcium 8.2 mg/dL (8.4-10.2); Potassium 4.5 mmol/L (3.5-5.1); Total Bilirubin 0.4 mg/dL (0.2-1.3); Total Protein 5.5 g/dL (6.3-8.2)
[2020-08-12 02:16] LABS: Glucose,Whole Blood 164 mg/dL (75-99)
[2020-08-12 02:20] LABS: Partial Thromboplastin Time 23.1 sec (22.0-30.0); Prothrombin Time 10.5 sec (9.0-12.0)
[2020-08-12 02:57] LABS: Band Neutrophils % 1 %; Lymphocytes # (M) 1.57 k/uL (1.0-4.8); Monocytes # (M) 0.29 k/uL (0-1.0); Neutrophils % (M) 79 %; Nucleated Red Blood Cells 0 /100 WBC (0-0); Total Cells Counted 100
[2020-08-12 02:58] LABS: Anisocytosis (M) Present; Ovalocytes Present; Polychromasia Present
[2020-08-12 04:27] LABS: Anisocytosis Moderate; Hypochromasia Marked; MCH 28.3 pg (25.0-35.0); MCHC 29.3 g/dL (31.0-37.0); MCV 96.5 fL (80.0-100.0); Macrocytosis Slight; Mean Platelet Volume 8.6; Platelet Count 184 k/uL (150-450); RBC 1.52 m/uL (3.80-5.40)
[2020-08-12 04:31] LABS: HCT 14.6 % (34.0-46.0); HGB 4.3 gm/dL (11.4-16.0)
[2020-08-12 05:06] LABS: Calcium 7.7 mg/dL (8.4-10.2); Potassium 4.2 mmol/L (3.5-5.1)
[2020-08-12 06:02] LABS: Monocytes # (M) 0.21 k/uL (0-1.0); Neutrophils % (M) 78 %; Nucleated Red Blood Cells 1 /100 WBC (0-0); Total Cells Counted 200
[2020-08-12 06:03] LABS: Lymphocytes # (M) 1.31 k/uL (1.0-4.8); Neutrophils # (M) 5.38 k/uL (1.3-7.7); WBC 6.9 k/uL (3.8-10.6)
[2020-08-12 06:04] LABS: Anisocytosis (M) Present; Ovalocytes Present; Polychromasia Present
[2020-08-12] MEDS ORDERED: PANTOPRAZOLE 40 MG/10 ML VIAL IV SCH (09:00)
[2020-08-12] MEDS ORDERED: NITROGLYCERIN SL TABS 0.4 MG TAB SUBLINGUAL PRN (10:15)
[2020-08-12] MEDS: DULoxetine HCL 60 MG CAPSULE.DR PO SCH (11:58)
[2020-08-12] MEDS: ISOSORBIDE MONONITRATE ER 60 MG TAB.ER.24H PO SCH (11:58)
[2020-08-12] MEDS: LEVOTHYROXINE 50 MCG TAB PO SCH (11:58)
[2020-08-12] MEDS: EZETIMIBE 10 MG TAB PO SCH (11:58)
[2020-08-12] MEDS: INSULIN ASPART (NovoLOG) 100 UNIT/ML VIAL SQ SCH ×3 (15:09→21:58)
--- NOTE | 2020-08-12 16:15 | P.CNPUL ---
History of Present Illness Consult date: 08/12/20 Requesting physician: Malcolm Baig Reason for consult: other (Severe anemia and black stools) Chief complaint: Dark stools History of present illness: This is a 70-year-old female with history of multiple medical problems, patient is known to have history of hypertension, history of GI bleeding from gastric AV malformation, history of severe GERD, coronary artery disease and previous stent placement, type 2 diabetes, dyslipidemia, hypertension, scleroderma with systemic features, patient has been following up with Dr. Bennett for her previous history of GI bleeding, she had multiple scopes in the past including EGD and colonoscopy, her last EGD was actually about a year and a half ago, when the patient presented back then with GI bleeding. And she was eventually diagnosed as having gastric AV malformation. Patient was recently treated for atrial fibrillation, and Eliquis was started. Then the patient has been noticing black stools for 1 week prior to presentation, and she has been noticing to be more fatigued. Patient took Pepto-Bismol and she felt it is possibly related to Pe pto-Bismol but went on to develop worsening constitutional symptoms mostly weakness, presented to the ER in [facility], and she was found to have extremely low hemoglobin. Hemoglobin was in the range of 4.5. Arrangements were made to transfer the patient to [facility], seen in the ER, and her follow-up hemoglobin was 4.9 hence the patient was admitted to the ICU, 4 units of packed RBCs were requested, follow-up hemoglobin is pending. However there is some difficulty in crossmatch in her blood, apparently she has some antibodies and the blood bank is working on addressing this issue. Blood will be transfused as soon as it becomes available GI consultation is pending. I have increased her Protonix to 40 mg IV push twice a day. Patient denies any nausea vomiting abdominal pain she does have mostly symptoms of dark colored stools. And mostly symptoms of weakness Review of Systems Constitutional: Weakness fatigue malaise no fever no chills. HEENT: Negative. Pulmonary: Negative. Cardiac: Negative. GI: As noted in HPI mostly black stools. Genitourinary: Negative. [place] skeletal: Negative. Patient does have history of systemic sclerosis and rate not syndrome Skin: Negative. Endocrine: Negative. Hematologic: As noted in HPI. Neurologic: Negative. Psychiatric: Negative. Past Medical History Past Medical History: Blood Disorder, Coronary Artery Disease (CAD), Chest Pain / Angina, COPD, Diabetes Mellitus, GERD/Reflux, GI Bleed, Hyperlipidemia, Hypertension, Memory Impairment, Osteoarthritis (OA), Thyroid Disorder Additional Past Medical History / Comment(s): Scleroderma, Raynauds, Iron Deficiency Anemia, reoccuring urinary tract infections, anemia, bronchitis, plerusy, previous aspiration, pt. states she recently has noticed she is having some short term memory loss as well as difficulty swallowing, raynauds syndrome History of Any Multi-Drug Resistant Organisms: None Reported Past Surgical History: Cholecystectomy, Coronary Bypass/CABG, Heart Catheterization, Heart Catheterization With Stent, Hysterectomy, Orthopedic Surgery, Pacemaker, Tonsillectomy Additional Past Surgical History / Comment(s): Bilateral BKA (r/t diabetic complications), Triple Bypass 2011 ([place]), Pacemaker Past Anesthesia/Blood Transfusion Reactions: No Reported Reaction Date of Last Stent Placement:: 2012 Type of Cardiac Device: Permanent Pacemaker Device Placement Date:: 2011 Past Psychological History: Anxiety, Depression Additional Psychological History / Comment(s): "slight little bit" Smoking Status: Never smoker Past Alcohol Use History: None Reported Past Drug Use History: None Reported - Past Family History Mother Family Medical History: Cancer Additional Family Medical History / Comment(s): colon cancer Father Family Medical History: Diabetes Mellitus, Myocardial Infarction ([place]) Sister(s) Family Medical History: Cancer, COPD Additional Family Medical History / Comment(s): Stomach Medications and Allergies Home Medications Medication Instructions Recorded Confirmed Type DULoxetine HCL [Cymbalta] 60 mg PO DAILY 09/09/17 08/12/20 History Ezetimibe [Zetia] 10 mg PO DAILY 09/09/17 08/12/20 History Isosorbide Mononitrate ER [Imdur] 60 mg PO DAILY 09/09/17 08/12/20 History Losartan Potassium 100 mg PO DAILY 09/09/17 08/12/20 History Omeprazole 20 mg PO BID 09/09/17 08/12/20 History Simvastatin [Zocor] 40 mg PO HS 09/09/17 08/12/20 History Clopidogrel Bisulfate [Plavix] 75 mg PO DAILY 12/07/18 08/12/20 History Metoprolol Tartrate [Lopressor] 50 mg PO BID 12/07/18 08/12/20 History amLODIPine [Norvasc] 10 mg PO DAILY 12/07/18 08/12/20 History Famotidine [Pepcid] 20 mg PO BID 08/12/20 08/12/20 History Levothyroxine Sodium [Synthroid] 50 mcg PO DAILY 08/12/20 08/12/20 History Nitroglycerin Sl Tabs [Nitrostat] 0.4 mg SUBLINGUAL Q5M PRN 08/12/20 08/12/20 History sitaGLIPtin PHOSPHATE [Januvia] 50 mg PO DAILY 08/12/20 08/12/20 History Allergies Allergy/AdvReac Type Severity Reaction Status Date / Time erythromycin base AdvReac Rash/Hives Verified 12/07/18 20:11 gabapentin AdvReac Rash/Hives Verified 12/07/18 20:11 kiwi AdvReac Abdominal Verified 12/07/18 20:11 Pain latex AdvReac Rash/Hives Verified 12/07/18 20:11 Physical Exam Vitals: Vital Signs Temp Pulse Resp BP BP Pulse Ox 08/12/20 15:07 98.7 F 82 19 111/48 08/12/20 15:00 85 8 L 111/48 100 08/12/20 14:00 87 7 L 119/57 100 08/12/20 13:30 98.7 F 82 19 111/48 08/12/20 13:00 82 14 99/45 100 08/12/20 12:00 97.9 F 77 14 88/43 100 08/12/20 11:01 97.9 F 84 18 88/43 96 08/12/20 11:00 98.6 F 87 21 102/48 92 L 08/12/20 10:31 98.4 F 75 17 97/54 95 08/12/20 10:21 98.8 F 81 19 102/48 96 08/12/20 10:00 81 17 96/48 100 08/12/20 09:00 77 14 103/47 100 08/12/20 08:00 97.4 F L 80 15 108/45 100 08/12/20 07:00 80 15 90/46 100 08/12/20 06:00 80 14 94/44 100 08/12/20 05:00 84 12 84/44 100 08/12/20 04:00 80 9 L 82/58 100 08/12/20 03:00 76 11 L 92/44 98 08/12/20 02:30 97.8 F 75 22 92/44 100 08/12/20 02:24 97.8 F 15 84/43 08/12/20 02:03 75 18 105/77 100 08/12/20 00:56 97.9 F 75 16 133/54 91 L Intake and Output 08/12/20 08/12/20 08/12/20 06:59 14:59 22:59 Intake Total 200 400 360 Output Total 300 375 300 Balance -100 25 60 Intake: IV 200 400 50 0.9 NaCl- 200 400 50 Blood Product 0 310 Rc As-1 Unit 0 310 [id number] Output: Urine 300 375 300 Other: Voiding Method Bedpan Bedpan Weight 61.8 kg Physical Exam: Revealed 70-year-old female, in no distress. Head: Atraumatic, normocephalic. HEENT: Pale conjunctivae. [Neck is supple.] [No neck masses.] [No thyromegaly.] [No JVD.] PERRLA, EOMI, no icterus. Chest: [Clear throughout, no crackles, no rhonchi, no wheezes.] Diminished breath sounds at the bases. Equal chest expansion. Cardiac Exam: [Normal S1 and S2, no S3 gallop, no murmur.] Abdomen: [Soft, nontender, no megaly, no rebound, no guarding, normal bowel sounds.] Extremities: [No clubbing, no edema, no cyanosis.] Bilateral below-knee amputations noted. Neurological Exam: [No focal neurologic deficit.] Alert and oriented 3. Psychiatric: Normal affect and normal mental status examination. Skin: No rashes. Lymphatics: No cervical or supraclavicular lymphadenopathy. Results - Laboratory Findings CBC and BMP: 08/12/20 04:13 08/12/20 04:13 PT/INR, D-dimer PT 10.5 sec (9.0-12.0) 08/12/20 01:15 INR 1.0 (<1.2) 08/12/20 01:15 Abnormal lab findings: Abnormal Labs 08/12/20 08/12/20 08/12/20 01:15 01:15 01:15 RBC 1.74 L Hgb 4.9 L* Hct 16.4 L* MCHC 30.1 L RDW 21.5 H Neutrophils # (Manual) 7.80 H Nucleated RBCs Chloride 111 H Carbon Dioxide 17 L BUN 60 H Creatinine 1.29 H Glucose 151 H POC Glucose (mg/dL) Calcium 8.2 L Total Protein 5.5 L Albumin 3.3 L Crossmatch See Detail 08/12/20 08/12/20 08/12/20 02:14 04:13 04:13 RBC 1.52 L Hgb 4.3 L* Hct 14.6 L* MCHC 29.3 L RDW 22.0 H Neutrophils # (Manual) Nucleated RBCs 1 H Chloride 113 H Carbon Dioxide 19 L BUN 61 H Creatinine 1.24 H Glucose 173 H POC Glucose (mg/dL) 164 H Calcium 7.7 L Total Protein Albumin Crossmatch Assessment and Plan Assessment: Impression: Acute on chronic blood loss anemia Suspect recurrent GI bleeding secondary from gastric AV malformations. Exacerbated by the fact the patient was given Eliquis. Chronic atrial fibrillation. History of coronary artery disease. History of GERD. Type 2 diabetes. History of hypothyroidism. History of systemic sclerosis and drain outs syndrome. History of previous CABG in 2011. History of bilateral below-knee amputations. Recommendation: Continue Protonix. Patient will be given 40 mg IV push twice a day. Continue to monitor in the ICU. Type crossed and transfused at least 2 units of packed RBCs as soon as possible. Continue to transfuse until hemoglobin is above 7. GI to see on consultation. Resume home meds. Hold any anticoagulation therapy/Eliquis. We'll continue to follow. Time with Patient: Greater than 30
[2020-08-12 18:09] LABS: Glucose,Whole Blood 248 mg/dL (75-99)
--- NOTE | 2020-08-12 18:51 | P.HPIM ---
History of Present Illness H&P Date: 08/12/20 Chief Complaint: Weakness and dark stools History of presenting complaint: This is a 70-year-old patient follows with Dr. Soto. Chronic stable medical conditions include coronary artery disease with stent, diabetes mellitus type II, GERD, hypertension, hyperlipidemia, scleroderma systemic features, history of gastric AV malformation bleeding. Patient initially presented to [facility] feeling weak diet unknown. For last 5 or 6 days patient been having black stools. Patient is on Plavix and also takes Aleve for body aches and pains. She was transferred down here. Initial hemoglobin was less than 5. 4 units of blood were ordered from the ER. Getting first unit of blood this morning. Patient's daughter the bedside. No chest pain. Review of systems: GEN.: Weight diagrammed rundown EYES: None HEENT: None NECK: None RESPIRATORY: None CARDIOVASCULAR: None GASTROINTESTINAL: [Some epigastric pain GENITOURINARY: None MUSCULOSKELETAL: None EXTREMITIES: Bilateral below-knee amputation LYMPHATICS: None HEMATOLOGICAL: None PSYCHIATRY: None NEUROLOGICAL: None Past medical history to include: Coronary artery with stent, diabetes mellitus type 2, GERD, hypertension, hyperlipidemia, scleroderma with systemic features, history of gastric AV malformation with bleeding and clipping some memory impairment, coronary bypass, pacemaker Social history: No history of smoking and alcohol. Lives alone. Does use a wheelchair. Physical examination: VITAL SIGNS: 97.9, 75, 16, 133/54, 91% room air-on presentation GENERAL: BMI 25.7, [place] in bed, tired. EYES: [Pupils equal. Conjunctiva pale. HEENT: External appearance of nose and ears normal, oral cavity grossly normal. NECK: JVD not raised; masses not palpable. HEART: First and second heart sounds are normal; no edema. LUNGS: Respiratory rate normal; clear to auscultation. ABDOMEN: Soft, nontender, liver spleen not palpable, no masses palpable. PSYCH: Alert and oriented x3; mood and affect normal EXTREMITIES: Bilateral below-knee amputation. NEUROLOGICAL: Cranial nerves grossly intact; no facial asymmetry, power and sensation grossly intact. LYMPHATICS: No lymph nodes palpable in the axilla and neck INVESTIGATIONS, reviewed in the clinical context: White count 9.8 hemoglobin 4.9 platelets 216 potassium 4.5 Bun*60 creatinine 1.29 Previous testing: Bun 11 creatinine 0.71 from December 2018 Assessment: -Acute GI bleed in a patient is on Plavix also taking Aleve with a prior history of AV malformation in the stomach that was clipped. Patient could be bleeding from the same and/or having additional peptic ulcer disease. -Acute severe blood loss anemia -Suspect acute kidney injury possibly combination of hypertension and patient taking NSAIDs, likely ATN -Coronary artery disease with history of stent and coronary bypass -Diabetes mellitus type 2 -GERD -Essential hypertension -Hyperlipidemia -Scleroderma systemic features -Hypothyroid Plan: Patient in the ICU. Patient being transfused blood. Getting IV fluids. GI was consulted with a view to endoscopy. Antihypertensives to be held. Hold off Januvia. Follow Accu-Cheks. Blood pressure is running low. Hold off on antihypertensives. Patient is put on PPI. Care was discussed with the patient daughter the bedside. Follow H&H. Repeat renal function in the morning. Past Medical History Past Medical History: Blood Disorder, Coronary Artery Disease (CAD), Chest Pain / Angina, COPD, Diabetes Mellitus, GERD/Reflux, GI Bleed, Hyperlipidemia, Hypertension, Memory Impairment, Osteoarthritis (OA), Thyroid Disorder Additional Past Medical History / Comment(s): Scleroderma, Raynauds, Iron Deficiency Anemia, reoccuring urinary tract infections, anemia, bronchitis, plerusy, previous aspiration, pt. states she recently has noticed she is having some short term memory loss as well as difficulty swallowing, raynauds syndrome History of Any Multi-Drug Resistant Organisms: None Reported Past Surgical History: Cholecystectomy, Coronary Bypass/CABG, Heart Catheterization, Heart Catheterization With Stent, Hysterectomy, Orthopedic Surgery, Pacemaker, Tonsillectomy Additional Past Surgical History / Comment(s): Bilateral BKA (r/t diabetic complications), Triple Bypass 2011 ([place]), Pacemaker Past Anesthesia/Blood Transfusion Reactions: No Reported Reaction Date of Last Stent Placement:: 2012 Type of Cardiac Device: Permanent Pacemaker Device Placement Date:: 2011 Past Psychological History: Anxiety, Depression Additional Psychological History / Comment(s): "slight little bit" Smoking Status: Never smoker Past Alcohol Use History: None Reported Past Drug Use History: None Reported - Past Family History Mother Family Medical History: Cancer Additional Family Medical History / Comment(s): colon cancer Father Family Medical History: Diabetes Mellitus, Myocardial Infarction ([place]) Sister(s) Family Medical History: Cancer, COPD Additional Family Medical History / Comment(s): Stomach Medications and Allergies Home Medications Medication Instructions Recorded Confirmed Type DULoxetine HCL [Cymbalta] 60 mg PO DAILY 09/09/17 08/12/20 History Ezetimibe [Zetia] 10 mg PO DAILY 09/09/17 08/12/20 History Isosorbide Mononitrate ER [Imdur] 60 mg PO DAILY 09/09/17 08/12/20 History Losartan Potassium 100 mg PO DAILY 09/09/17 08/12/20 History Omeprazole 20 mg PO BID 09/09/17 08/12/20 History Simvastatin [Zocor] 40 mg PO HS 09/09/17 08/12/20 History Clopidogrel Bisulfate [Plavix] 75 mg PO DAILY 12/07/18 08/12/20 History Metoprolol Tartrate [Lopressor] 50 mg PO BID 12/07/18 08/12/20 History amLODIPine [Norvasc] 10 mg PO DAILY 12/07/18 08/12/20 History Famotidine [Pepcid] 20 mg PO BID 08/12/20 08/12/20 History Levothyroxine Sodium [Synthroid] 50 mcg PO DAILY 08/12/20 08/12/20 History Nitroglycerin Sl Tabs [Nitrostat] 0.4 mg SUBLINGUAL Q5M PRN 08/12/20 08/12/20 History sitaGLIPtin PHOSPHATE [Januvia] 50 mg PO DAILY 08/12/20 08/12/20 History Allergies Allergy/AdvReac Type Severity Reaction Status Date / Time erythromycin base AdvReac Rash/Hives Verified 12/07/18 20:11 gabapentin AdvReac Rash/Hives Verified 12/07/18 20:11 kiwi AdvReac Abdominal Verified 12/07/18 20:11 Pain latex AdvReac Rash/Hives Verified 12/07/18 20:11 Physical Exam Vitals: Vital Signs Temp Pulse Resp BP BP Pulse Ox 08/12/20 09:00 77 14 103/47 100 08/12/20 08:00 97.4 F L 80 15 108/45 100 08/12/20 07:00 80 15 90/46 100 08/12/20 06:00 80 14 94/44 100 08/12/20 05:00 84 12 84/44 100 08/12/20 04:00 80 9 L 82/58 100 08/12/20 03:00 76 11 L 92/44 98 08/12/20 02:30 97.8 F 75 22 92/44 100 08/12/20 02:24 97.8 F 15 84/43 08/12/20 02:03 75 18 105/77 100 08/12/20 00:56 97.9 F 75 16 133/54 91 L Intake and Output 08/11/20 08/12/20 08/12/20 22:59 06:59 14:59 Intake Total 200 150 Output Total 300 275 Balance -100 -125 Intake: IV 200 150 0.9 NaCl- 200 150 Output: Urine 300 275 Other: Voiding Method Bedpan Bedpan Weight 61.8 kg Results CBC & Chem 7: 08/12/20 04:13 08/12/20 04:13 Labs: Abnormal Lab Results - Last 24 Hours (Table) 08/12/20 08/12/20 08/12/20 Range/Units 01:15 01:15 01:15 RBC 1.74 L (3.80-5.40) m/uL Hgb 4.9 L* (11.4-16.0) gm/dL Hct 16.4 L* (34.0-46.0) % MCHC 30.1 L (31.0-37.0) g/dL RDW 21.5 H (11.5-15.5) % Neutrophils # (Manual) 7.80 H (1.3-7.7) k/uL Nucleated RBCs (0-0) /100 WBC Chloride 111 H (98-107) mmol/L Carbon Dioxide 17 L (22-30) mmol/L BUN 60 H (7-17) mg/dL Creatinine 1.29 H (0.52-1.04) mg/dL Glucose 151 H (74-99) mg/dL POC Glucose (mg/dL) (75-99) mg/dL Calcium 8.2 L (8.4-10.2) mg/dL Total Protein 5.5 L (6.3-8.2) g/dL Albumin 3.3 L (3.5-5.0) g/dL Crossmatch See Detail 08/12/20 08/12/20 08/12/20 Range/Units 02:14 04:13 04:13 RBC 1.52 L (3.80-5.40) m/uL Hgb 4.3 L* (11.4-16.0) gm/dL Hct 14.6 L* (34.0-46.0) % MCHC 29.3 L (31.0-37.0) g/dL RDW 22.0 H (11.5-15.5) % Neutrophils # (Manual) (1.3-7.7) k/uL Nucleated RBCs 1 H (0-0) /100 WBC Chloride 113 H (98-107) mmol/L Carbon Dioxide 19 L (22-30) mmol/L BUN 61 H (7-17) mg/dL Creatinine 1.24 H (0.52-1.04) mg/dL Glucose 173 H (74-99) mg/dL POC Glucose (mg/dL) 164 H (75-99) mg/dL Calcium 7.7 L (8.4-10.2) mg/dL Total Protein (6.3-8.2) g/dL Albumin (3.5-5.0) g/dL Crossmatch Thrombosis Risk Factor Assmnt - Choose All That Apply Each Factor Represents 1 point: Abnormal pulmonary function (COPD) Other Risk Factors: No Thrombosis Risk Factor Assessment Total Risk Factor Score: 1 Thrombosis Risk Factor Assessment Level: Low Risk
[2020-08-12] MEDS: PANTOPRAZOLE 40 MG/10 ML VIAL IV SCH (20:23)
[2020-08-12 21:59] LABS: Glucose,Whole Blood 129 mg/dL (75-99)
[2020-08-13] MEDS: LEVOTHYROXINE 50 MCG TAB PO SCH (04:30)
[2020-08-13 06:25] LABS: Glucose,Whole Blood 149 mg/dL (75-99)
[2020-08-13] MEDS: INSULIN ASPART (NovoLOG) 100 UNIT/ML VIAL SQ SCH ×4 (06:26→20:59)
[2020-08-13 06:50] LABS: Anisocytosis Slight; Basophils % (A) 1 %; Eosinophils # (A) 0.2 k/uL (0-0.7); Eosinophils % (A) 4 %; HCT 32.6 % (34.0-46.0); Hypochromasia Slight; Lymphocytes # (A) 0.8 k/uL (1.0-4.8); Lymphocytes % (A) 13 %; MCHC 31.1 g/dL (31.0-37.0); MCV 93.3 fL (80.0-100.0); Mean Platelet Volume 8.3; Monocytes # (A) 0.3 k/uL (0-1.0); Monocytes % (A) 6 %; Neutrophils # (A) 4.3 k/uL (1.3-7.7); Neutrophils % (A) 75 %; Platelet Count 136 k/uL (150-450); Poikilocytosis Slight; RDW 17.2 % (11.5-15.5); WBC 5.8 k/uL (3.8-10.6)
[2020-08-13 06:57] LABS: HGB 10.2 gm/dL (11.4-16.0)
[2020-08-13 07:08] LABS: Calcium 7.9 mg/dL (8.4-10.2); Potassium 3.8 mmol/L (3.5-5.1)
[2020-08-13] MEDS ORDERED: PROPOFOL 10 MG/ML 20 ML VIAL IV ONE (11:03)
[2020-08-13] MEDS ORDERED: LIDOCAINE 1% INJ 10MG/ML (20 ML MDV) ONE (11:03)
[2020-08-13] MEDS: EZETIMIBE 10 MG TAB PO SCH (11:09)
[2020-08-13] MEDS: DULoxetine HCL 60 MG CAPSULE.DR PO SCH (11:09)
[2020-08-13] MEDS ORDERED: EPINEPHrine 10 ML SYRINGE (0.1 MG/ML) MISCELLANE ONE (11:29)
[2020-08-13] MEDS ORDERED: IV FLUID CONTINUATION 1,000 ML IV ONE ×2 (11:36)
--- NOTE | 2020-08-13 11:59 | P.CONS ---
History of Present Illness - Reason for Consult Consult date: 08/12/20 Melena Requesting physician: Malcolm Baig - Chief Complaint Anemia - History of Present Illness 70-year-old female with medical history significant for prior GI bleed secondary to gastric AV malformation, GERD, coronary artery disease, diabetes mellitus, dyslipidemia, hypertension, and scleroderma who presented as a transfer from [facility]. She has been seen there with complaints of weakness and dark-colored stool. Hemoglobin was found to be 4.7. The patient was transferred for further evaluation. 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 Patient denies any pain in her abdomen. She had been having dark colored bowel movements for a few days prior to presentation. Review of Systems REVIEW OF SYSTEMS: CONSTITUTIONAL: Denies any fevers, chills, weight change but the patient had been having fatigue. CARDIOVASCULAR: Denies any chest pain, palpitations high or low blood pressures RESPIRATORY: Denies any shortness of breath, hemoptysis or cough. GENITOURINARY: No dysuria or hematuria. MUSCULOSKELETAL: No weakness reported. SKIN: Denies any new rashes or lesions, jaundice or pallor. PSYCHIATRIC: Denies any depression or anxiety. NEUROLOGY: Denies headache, denies any new focal deficits. EARS/NOSE/THROAT: No recent hearing change, congestion, nasal discharge or sore throat. EYES: No pain in eyes, discharge or change in vision. GASTROINTESTINAL: As per HPI. Past Medical History Past Medical History: Blood Disorder, Coronary Artery Disease (CAD), Chest Pain / Angina, COPD, Diabetes Mellitus, GERD/Reflux, GI Bleed, Hyperlipidemia, Hypertension, Memory Impairment, Osteoarthritis (OA), Thyroid Disorder Additional Past Medical History / Comment(s): Scleroderma, Raynauds, Iron Deficiency Anemia, reoccuring urinary tract infections, anemia, bronchitis, plerusy, previous aspiration, pt. states she recently has noticed she is having some short term memory loss as well as difficulty swallowing, raynauds syndrome History of Any Multi-Drug Resistant Organisms: None Reported Past Surgical History: Cholecystectomy, Coronary Bypass/CABG, Heart Catheterization, Heart Catheterization With Stent, Hysterectomy, Orthopedic Surgery, Pacemaker, Tonsillectomy Additional Past Surgical History / Comment(s): Bilateral BKA (r/t diabetic complications), Triple Bypass 2012 ([place]), Pacemaker Past Anesthesia/Blood Transfusion Reactions: No Reported Reaction Date of Last Stent Placement:: 2012 Type of Cardiac Device: Permanent Pacemaker Device Placement Date:: 2011 Past Psychological History: Anxiety, Depression Additional Psychological History / Comment(s): "slight little bit" Smoking Status: Never smoker Past Alcohol Use History: None Reported Past Drug Use History: None Reported - Past Family History Mother Family Medical History: Cancer Additional Family Medical History / Comment(s): colon cancer Father Family Medical History: Diabetes Mellitus, Myocardial Infarction ([place]) Sister(s) Family Medical History: Cancer, COPD Additional Family Medical History / Comment(s): Stomach Medications and Allergies Home Medications Medication Instructions Recorded Confirmed Type DULoxetine HCL [Cymbalta] 60 mg PO DAILY 09/09/17 08/12/20 History Ezetimibe [Zetia] 10 mg PO DAILY 09/09/17 08/12/20 History Isosorbide Mononitrate ER [Imdur] 60 mg PO DAILY 09/09/17 08/12/20 History Losartan Potassium 100 mg PO DAILY 09/09/17 08/12/20 History Omeprazole 20 mg PO BID 09/09/17 08/12/20 History Simvastatin [Zocor] 40 mg PO HS 09/09/17 08/12/20 History Clopidogrel Bisulfate [Plavix] 75 mg PO DAILY 12/07/18 08/12/20 History Metoprolol Tartrate [Lopressor] 50 mg PO BID 12/07/18 08/12/20 History amLODIPine [Norvasc] 10 mg PO DAILY 12/07/18 08/12/20 History Famotidine [Pepcid] 20 mg PO BID 08/12/20 08/12/20 History Levothyroxine Sodium [Synthroid] 50 mcg PO DAILY 08/12/20 08/12/20 History Nitroglycerin Sl Tabs [Nitrostat] 0.4 mg SUBLINGUAL Q5M PRN 08/12/20 08/12/20 History sitaGLIPtin PHOSPHATE [Januvia] 50 mg PO DAILY 08/12/20 08/12/20 History Allergies Allergy/AdvReac Type Severity Reaction Status Date / Time erythromycin base AdvReac Rash/Hives Verified 12/07/18 20:11 gabapentin AdvReac Rash/Hives Verified 12/07/18 20:11 kiwi AdvReac Abdominal Verified 12/07/18 20:11 Pain latex AdvReac Rash/Hives Verified 12/07/18 20:11 Physical Exam Vitals: Vital Signs Temp Pulse Resp BP BP Pulse Ox 08/12/20 15:07 98.7 F 82 19 111/48 08/12/20 15:00 85 8 L 111/48 100 08/12/20 14:00 87 7 L 119/57 100 08/12/20 13:30 98.7 F 82 19 111/48 08/12/20 13:00 82 14 99/45 100 08/12/20 12:00 97.9 F 77 14 88/43 100 08/12/20 11:01 97.9 F 84 18 88/43 96 08/12/20 11:00 98.6 F 87 21 102/48 92 L 08/12/20 10:31 98.4 F 75 17 97/54 95 08/12/20 10:21 98.8 F 81 19 102/48 96 08/12/20 10:00 81 17 96/48 100 08/12/20 09:00 77 14 103/47 100 08/12/20 08:00 97.4 F L 80 15 108/45 100 08/12/20 07:00 80 15 90/46 100 08/12/20 06:00 80 14 94/44 100 08/12/20 05:00 84 12 84/44 100 08/12/20 04:00 80 9 L 82/58 100 08/12/20 03:00 76 11 L 92/44 98 08/12/20 02:30 97.8 F 75 22 92/44 100 08/12/20 02:24 97.8 F 15 84/43 08/12/20 02:03 75 18 105/77 100 08/12/20 00:56 97.9 F 75 16 133/54 91 L Intake and Output 08/12/20 08/12/20 08/12/20 06:59 14:59 22:59 Intake Total 200 400 360 Output Total 300 375 300 Balance -100 25 60 Intake: IV 200 400 50 0.9 NaCl- 200 400 50 Blood Product 0 310 Rc As-1 Unit 0 310 [id number] Output: Urine 300 375 300 Other: Voiding Method Bedpan Bedpan Weight 61.8 kg On physical examination, patient appears comfortable in no apparent distress. HEAD: Normocephalic, atraumatic. EYES: No scleral icterus. No conjunctival injection. MOUTH: No lesions, tongue midline. NECK: Trachea midline, no gross abnormalities. CHEST: Clear to auscultation with no wheezing or rhonchi appreciated. HEART: S1-S2 appreciated. ABDOMEN: Soft, obese. Bowel sounds are positive. No organomegaly. No guarding or rigidity. EXTREMITIES: Bilateral below the knee amputation. SKIN: No rashes, no jaundice. NEUROLOGIC: Alert and oriented x3. No focal deficits. Results CBC & Chem 7: 08/13/20 06:29 08/13/20 06:29 Labs: Abnormal Lab Results - Last 24 Hours (Table) 08/12/20 08/12/20 08/12/20 Range/Units 01:15 01:15 01:15 RBC 1.74 L (3.80-5.40) m/uL Hgb 4.9 L* (11.4-16.0) gm/dL Hct 16.4 L* (34.0-46.0) % MCHC 30.1 L (31.0-37.0) g/dL RDW 21.5 H (11.5-15.5) % Neutrophils # (Manual) 7.80 H (1.3-7.7) k/uL Nucleated RBCs (0-0) /100 WBC Chloride 111 H (98-107) mmol/L Carbon Dioxide 17 L (22-30) mmol/L BUN 60 H (7-17) mg/dL Creatinine 1.29 H (0.52-1.04) mg/dL Glucose 151 H (74-99) mg/dL POC Glucose (mg/dL) (75-99) mg/dL Calcium 8.2 L (8.4-10.2) mg/dL Total Protein 5.5 L (6.3-8.2) g/dL Albumin 3.3 L (3.5-5.0) g/dL Crossmatch See Detail 08/12/20 08/12/20 08/12/20 Range/Units 02:14 04:13 04:13 RBC 1.52 L (3.80-5.40) m/uL Hgb 4.3 L* (11.4-16.0) gm/dL Hct 14.6 L* (34.0-46.0) % MCHC 29.3 L (31.0-37.0) g/dL RDW 22.0 H (11.5-15.5) % Neutrophils # (Manual) (1.3-7.7) k/uL Nucleated RBCs 1 H (0-0) /100 WBC Chloride 113 H (98-107) mmol/L Carbon Dioxide 19 L (22-30) mmol/L BUN 61 H (7-17) mg/dL Creatinine 1.24 H (0.52-1.04) mg/dL Glucose 173 H (74-99) mg/dL POC Glucose (mg/dL) 164 H (75-99) mg/dL Calcium 7.7 L (8.4-10.2) mg/dL Total Protein (6.3-8.2) g/dL Albumin (3.5-5.0) g/dL Crossmatch Assessment and Plan (1) Melena Narrative/Plan: 70-year-old female presented to the hospital with complaints of weakness and anemia as well as melena. Patient has multiple medical comorbidities and presented after being found to have a hemoglobin of 4.3 at the outside hospital. 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 She reports recent episodes of melanotic stool. Unclear etiology, differential includes recurrence of AVM, peptic ulcer disease, esophagitis, gastritis or o ther etiology. Current Visit: Yes Status: Acute Code(s): K92.1 - MELENA SNOMED Code(s): 8352420 (2) GI hemorrhage Current Visit: Yes Status: Acute Code(s): K92.2 - GASTROINTESTINAL HEMORRHAGE, UNSPECIFIED SNOMED Code(s): 98429390 (3) Anemia associated with acute blood loss Current Visit: Yes Status: Acute Code(s): D62 - ACUTE POSTHEMORRHAGIC ANEMIA SNOMED Code(s): 697476706 Plan: Supportive care Clear liquid diet Continue monitor hemoglobin and hematocrit and transfuse as needed Protonix IV twice a day Hold anticoagulation/antiplatelet therapy at this time Plan for EGD tomorrow for further evaluation Thank you for allowing us to participate in the care of the patient
[2020-08-13] MEDS: POTASSIUM CHLORIDE 10 MEQ in WATER FOR INJECTION 1 100ML.BAG IVPB SCH (12:03)
--- NOTE | 2020-08-13 12:04 | P.PCN ---
Date of Procedure: 08/13/20 Description of Procedure: BRIEF HISTORY: 70-year-old female with medical history significant for prior GI bleed secondary to gastric AV malformation, GERD, coronary artery disease, diabetes mellitus, dyslipidemia, hypertension, and scleroderma who presented as a transfer from [facility]. She has been seen there with complaints of weakness and dark-colored stool. Hemoglobin was found to be 4.7. The patient was transferred for further evaluation. 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 Patient denies any pain in her abdomen. She had been having dark colored bowel movements for a few days prior to presentation. PROCEDURE PERFORMED: Esophagogastroduodenoscopy with Endo Clip placement 2, gold probe ablation, epinephrine injection. PREOPERATIVE DIAGNOSIS: Melena, anemia of acute blood loss. ESTIMATED BLOOD LOSS: Minimal. IV sedation per anesthesia. PROCEDURE: After informed consent was obtained, the patient was brought into the endoscopy unit. IV sedation was administered by Anesthesia under continuous monitoring. Initially the Olympus GIF-190 video endoscope was inserted into the mouth. Esophagus intubated without any difficulty. It was gradually advanced into the stomach and duodenum and carefully examined. The bulb and the second part of the duodenum appeared normal. The scope at this time was withdrawn to the stomach, adequately insufflated with air, and upon careful examination, mucosa of the antrum, body, cardia and the fundus appeared normal, except for some mild scattered erythema suggestive of mild gastritis and a antral polyp. The scope was then withdrawn into the esophagus. The GE junction was located at 38 cm from the incisors. There was a thickened fold of gastric mucosa which was prolapsing into the distal esophagus, there are multiple areas of oozing of blood on this area of the gastric mucosa of unclear if these were arteriovenous malformation or superficial erosions, there are treated with Endo Clip placement 2, injection of 6 mL of epinephrine and gold probe ablation with hemostasis achieved. The esophagus otherwise appeared normal. There were no erosions or ulcerations seen and the patient tolerated the procedure well. IMPRESSION: 1. Thickened gastric fold prolapsing into the distal esophagus with punctate areas of oozing of blood unclear if this is from superficial erosions or AVMs, there are treated successfully with epinephrine injection, Gold probe ablation and Endo Clip placement 2. 2. Mild gastritis. 3. Gastric polyp. 4. Biopsies not taken in the setting of active GI bleed. RECOMMENDATIONS: The findings of this examination were discussed with the patient. Okay for full liquid diet. Continue to monitor hemoglobin and hematocrit and transfuse as needed. Continue to hold any anticoagulation or antiplatelet therapy. Patient should be discharged on Protonix twice daily. Would recommend referral to a tertiary institution for evaluation by advance endoscopy with endoscopic ultrasound to rule out submucosal pathology.
[2020-08-13] MEDS ORDERED: Potassium Replacement Protocol 1 EACH MISC MISCELLANE PRN (12:07)
[2020-08-13 12:26] LABS: Glucose,Whole Blood 194 mg/dL (75-99)
[2020-08-13] MEDS: ISOSORBIDE MONONITRATE ER 60 MG TAB.ER.24H PO SCH (12:33)
[2020-08-13] MEDS: PANTOPRAZOLE 40 MG/10 ML VIAL IV SCH ×2 (12:33→20:53)
[2020-08-13] MEDS ORDERED: POTASSIUM CHLORIDE ER 20 MEQ TAB.ER PO SCH (13:00)
[2020-08-13 16:47] LABS: Glucose,Whole Blood 118 mg/dL (75-99)
--- NOTE | 2020-08-13 17:08 | P.PN ---
Subjective Progress Note Date: 08/13/20 Principal diagnosis: Acute GI bleeding This is a 70-year-old female with history of multiple medical problems, patient is known to have history of hypertension, history of GI bleeding from gastric AV malformation, history of severe GERD, coronary artery disease and previous stent placement, type 2 diabetes, dyslipidemia, hypertension, scleroderma with systemic features, patient has been following up with Dr. Bennett for her previous history of GI bleeding, she had multiple scopes in the past including EGD and colonoscopy, her last EGD was actually about a year and a half ago, when the patient presented back then with GI bleeding. And she was eventually diagnosed as having gastric AV malformation. Patient was recently treated for atrial fibrillation, and Eliquis was started. Then the patient has been noticing black stools for 1 week prior to presentation, and she has been noticing to be more fatigued. Patient took Pepto-Bismol and she felt it is possibly related to Pepto-Bismol but went on to develop worsening constitutional symptoms mostly weakness, presented to the ER in [facility], and she was found to have extremely low hemoglobin. Hemoglobin was in the range of 4.5. Arrangements were made to transfer the patient to [facility], seen in the ER, and her follow-up hemoglobin was 4.9 hence the patient was admitted to the ICU, 4 units of packed RBCs were requested, follow-up hemoglobin is pending. However there is some difficulty in crossmatch in her blood, apparently she has some antibodies and the blood bank is working on addressing this issue. Blood will be transfused as soon as it becomes available GI consultation is pending. I have increased her Protonix to 40 mg IV push twice a day. Patient denies any nausea vomiting abdominal pain she does have mostly symptoms of dark colored stools. And mostly symptoms of weakness Patient was reevaluated today on 08/13/20, remains in the ICU, she underwent EGD and she was found to have thickened gastric fold prolapsing into the distal esophagus with punctate areas of oozing of blood possible superficial erosion or AV malformations treated mostly with epinephrine injections gold probe ablation and Endo Clip placement 2. Patient received a total of 4 units of packed RBCs and hemoglobin today is 10.2. presently the patient is hemodynamically stable. Patient could be transferred actually out of the ICU to a regular medical floor. Objective - Vital Signs Vital signs: Vital Signs Temp 98.2 F 08/13/20 15:00 Pulse 100 08/13/20 15:00 Resp 14 08/13/20 15:00 BP 148/71 08/13/20 15:00 Pulse Ox 98 08/13/20 15:00 Intake & Output 08/12/20 08/13/20 08/13/20 18:59 06:59 18:59 Intake Total 910 1380 450 Output Total 975 1200 400 Balance -65 180 50 Weight 60.5 kg Intake: IV 600 450 450 0.9 NaCl- 600 450 150 Sodium Chloride 0.9% 1, 100 000 ml @ 50 mls/hr IV . Q20H [facility] Rx#:[id number] Blood Product 310 930 Rc As-1 Unit 310 [id number] Rc Pheresis 2 As3 Unit 310 [id number] Rc Pheresis As-3 Unit 0 310 [id number] Rc Pheresis As-3 Unit 310 [id number] Output: Urine 975 1200 400 Other: Voiding Method Bedpan Bedpan Bedpan # Voids 1 # Bowel Movements 1 - Exam Physical Exam: Revealed 70-year-old female, in no distress. Head: Atraumatic, normocephalic. HEENT: Pale conjunctivae. [Neck is supple.] [No neck masses.] [No thyromegaly.] [No JVD.] PERRLA, EOMI, no icterus. Chest: [Clear throughout, no crackles, no rhonchi, no wheezes.] Diminished breath sounds at the bases. Equal chest expansion. Cardiac Exam: [Normal S1 and S2, no S3 gallop, no murmur.] Abdomen: [Soft, nontender, no megaly, no rebound, no guarding, normal bowel sounds.] Extremities: [No clubbing, no edema, no cyanosis.] Bilateral below-knee amputations noted. Neurological Exam: [No focal neurologic deficit.] Alert and oriented 3. Psychiatric: Normal affect and normal mental status examination. Skin: No rashes. Lymphatics: No cervical or supraclavicular lymphadenopathy. - Labs CBC & Chem 7: 08/13/20 06:29 08/13/20 06:29 Labs: Abnormal Lab Results - Last 24 Hours (Table) 1108/12/20 08/12/20 Range/Units 01:15 18:07 21:57 RBC (3.80-5.40) m/uL Hgb (11.4-16.0) gm/dL Hct (34.0-46.0) % RDW (11.5-15.5) % Plt Count (150-450) k/uL Lymphocytes # (1.0-4.8) k/uL Chloride (98-107) mmol/L Carbon Dioxide (22-30) mmol/L BUN (7-17) mg/dL Glucose (74-99) mg/dL POC Glucose (mg/dL) 248 H 129 H (75-99) mg/dL Calcium (8.4-10.2) mg/dL Crossmatch See Detail 08/13/20 08/13/20 08/13/20 Range/Units 06:24 06:29 06:29 RBC 3.50 L (3.80-5.40) m/uL Hgb 10.2 L D (11.4-16.0) gm/dL Hct 32.6 L (34.0-46.0) % RDW 17.2 H (11.5-15.5) % Plt Count 136 L (150-450) k/uL Lymphocytes # 0.8 L (1.0-4.8) k/uL Chloride 113 H (98-107) mmol/L Carbon Dioxide 20 L (22-30) mmol/L BUN 34 H (7-17) mg/dL Glucose 146 H (74-99) mg/dL POC Glucose (mg/dL) 149 H (75-99) mg/dL Calcium 7.9 L (8.4-10.2) mg/dL Crossmatch 08/13/20 08/13/20 Range/Units 12:24 16:45 RBC (3.80-5.40) m/uL Hgb (11.4-16.0) gm/dL Hct (34.0-46.0) % RDW (11.5-15.5) % Plt Count (150-450) k/uL Lymphocytes # (1.0-4.8) k/uL Chloride (98-107) mmol/L Carbon Dioxide (22-30) mmol/L BUN (7-17) mg/dL Glucose (74-99) mg/dL POC Glucose (mg/dL) 194 H 118 H (75-99) mg/dL Calcium (8.4-10.2) mg/dL Crossmatch Assessment and Plan Assessment: Impression: Acute on chronic blood loss anemia, status post 4 units of packed RBCs given since admission. Suspect recurrent GI bleeding secondary from gastric AV malformations. Exacerbated by the fact the patient was given Eliquis. Status post EGD, epinephrine injections, and endoscopic clipping of bleeding lesion, possible AV malformation Chronic atrial fibrillation. History of coronary artery disease. History of GERD. Type 2 diabetes. History of hypothyroidism. History of systemic sclerosis and drain outs syndrome. History of previous CABG in 2011. History of bilateral below-knee amputations. Recommendation: Continue Protonix. Consider transferring the patient to a regular medical floor. GI staff to continue to follow DD to hold anticoagulation therapy for now. We'll continue to follow. Time with Patient: Less than 30
[2020-08-13] MEDS: SODIUM CHLORIDE 0.9% 1,000 ML IV SCH (18:03)
[2020-08-13 19:40] LABS: Anisocytosis Slight; Basophils % (A) 1 %; Eosinophils # (A) 0.3 k/uL (0-0.7); Eosinophils % (A) 4 %; HCT 34.5 % (34.0-46.0); HGB 10.6 gm/dL (11.4-16.0); Hypochromasia Slight; Lymphocytes # (A) 0.9 k/uL (1.0-4.8); Lymphocytes % (A) 14 %; MCH 29.3 pg (25.0-35.0); MCHC 30.7 g/dL (31.0-37.0); MCV 95.7 fL (80.0-100.0); Macrocytosis Slight; Mean Platelet Volume 8.3; Monocytes # (A) 0.4 k/uL (0-1.0); Monocytes % (A) 6 %; Neutrophils % (A) 74 %; Platelet Count 145 k/uL (150-450); Poikilocytosis Slight; RDW 17.8 % (11.5-15.5); WBC 6.7 k/uL (3.8-10.6)
[2020-08-13 21:20] LABS: Glucose,Whole Blood 128 mg/dL (75-99)
--- NOTE | 2020-08-13 23:31 | P.PN ---
Progress Note - Text Progress Note Date: 08/13/20 Chief Complaint: Weakness and dark stools History of presenting complaint: This is a 70-year-old patient follows with Dr. Soto. Chronic stable medical conditions include coronary artery disease with stent, diabetes mellitus type II, GERD, hypertension, hyperlipidemia, scleroderma systemic features, history of gastric AV malformation bleeding. Patient initially presented to [facility] feeling weak diet unknown. For last 5 or 6 days patient been having black stools. Patient is on Plavix and also takes Aleve for body aches and pains. She was transferred down here. Initial hemoglobin was less than 5. 4 units of blood were ordered from the ER. Getting first unit of blood this morning. Patient's daughter the bedside. No chest pain. Today-underwent EGD by Dr. Louis. Found to have a very prominent gastric fold of the cardia. Superficial ulcerations. Biopsy was done. Underlying mass cannot be ruled out. Patient started on clear liquids. Further plan depending on clinical course Review of systems: Was done for constitutional, cardiovascular, GI, pulmonary. relevant finding as above Active Medications Duloxetine HCl (Duloxetine Hcl 60 Mg Capsule.) 60 mg PO DAILY [facility] Last Admin: 08/13/20 11:09 Dose: Not Given Documented by: Ezetimibe (Ezetimibe 10 Mg Tab) 10 mg PO DAILY [facility] Last Admin: 08/13/20 11:09 Dose: Not Given Documented by: Sodium Chloride (Saline 0.9%) 1,000 mls @ 50 mls/hr IV .Q20H [facility] Last Admin: 08/13/20 18:03 Dose: 50 mls/hr Documented by: Insulin Aspart (Insulin Aspart (Novolog) 100 Unit/Ml Vial) 0 unit SQ ACHS [facility]; Protocol Last Admin: 08/13/20 20:59 Dose: Not Given Documented by: Isosorbide Mononitrate (Isosorbide Mononitrate Er 60 Mg Tab.Er.24h) 60 mg PO DAILY [facility] Last Admin: 08/13/20 12:33 Dose: 60 mg Documented by: Levothyroxine Sodium (Levothyroxine 50 Mcg Tab) 50 mcg PO DAILY@0630 [facility] Last Admin: 08/13/20 04:30 Dose: Not Given Documented by: Miscellaneous Information (Potassium Replacement Protocol 1 Each Misc) 1 each MISCELLANE DAILY PRN; Protocol PRN Reason: Per Protocol Naloxone HCl (Naloxone 0.4 Mg/Ml 1 Ml Vial) 0.2 mg IV Q2M PRN PRN Reason: Opioid Reversal Nitroglycerin (Nitroglycerin Sl Tabs 0.4 Mg Tab) 0.4 mg SUBLINGUAL Q5M PRN PRN Reason: Chest Pain Pantoprazole Sodium (Pantoprazole 40 Mg/10 Ml Vial) 40 mg IV BID DOM Last Admin: 08/13/20 20:53 Dose: 40 mg Documented by: Physical examination: VITAL SIGNS: 98.2, 100, 14, 140/71, 98% on 2 L GENERAL: Laying in bed, comfortable EYES: [Pupils equal. Conjunctiva pale. NECK: JVD not raised; masses not palpable. HEART: First and second heart sounds are normal; no edema. LUNGS: Respiratory rate normal; clear to auscultation. ABDOMEN: Soft, nontender, liver spleen not palpable, no masses palpable. PSYCH: Alert and oriented x3; mood and affect normal EXTREMITIES: Bilateral below-knee amputation. INVESTIGATIONS, reviewed in the clinical context: White count 6.7 hemoglobin 10.6 White count 9.8 hemoglobin 4.9 platelets 216 potassium 4.5 Bun*60 creatinine 1.29 Previous testing: Bun 11 creatinine 0.71 from December 2018 Assessment: -Acute GI bleed in a patient is on Plavix also taking Aleve with a prior history of AV malformation in the stomach that was clipped. Patient could be bleeding from the same and/or having additional peptic ulcer disease. 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 with ulcerations -Acute severe blood loss anemia-patient received 4 units of blood -Suspect acute kidney injury possibly combination of hypertension and patient taking NSAIDs, likely ATN -Coronary artery disease with history of stent and coronary bypass -Diabetes mellitus type 2 -GERD -Essential hypertension -Hyperlipidemia -Scleroderma systemic features -Hypothyroid Plan: Discussed with Dr. Louis from GI. Patient a full liquid diet. Repeat CBC.
[2020-08-14] MEDS: LEVOTHYROXINE 50 MCG TAB PO SCH (05:08)
[2020-08-14 05:38] LABS: Anisocytosis Slight; HCT 33.7 % (34.0-46.0); HGB 10.8 gm/dL (11.4-16.0); Hypochromasia Slight; MCH 30.4 pg (25.0-35.0); MCHC 32.1 g/dL (31.0-37.0); MCV 94.5 fL (80.0-100.0); Macrocytosis Slight; Mean Platelet Volume 8.4; Platelet Count 131 k/uL (150-450); Poikilocytosis Slight; RBC 3.57 m/uL (3.80-5.40)
[2020-08-14 06:04] LABS: Band Neutrophils % 2 %; Lymphocytes # (M) 0.52 k/uL (1.0-4.8); Metamyelocytes # (M) 0.06 k/uL (0); Metamyelocytes % 1 %; Monocytes # (M) 0.46 k/uL (0-1.0); Myelocytes # (M) 0.06 k/uL (0); Myelocytes % 1 %; Neutrophils % (M) 79 %; Nucleated Red Blood Cells 8 /100 WBC (0-0); Total Cells Counted 200; WBC 5.8 k/uL (3.8-10.6)
[2020-08-14 06:05] LABS: Polychromasia Present
[2020-08-14 07:15] LABS: Glucose,Whole Blood 141 mg/dL (75-99)
[2020-08-14] MEDS: EZETIMIBE 10 MG TAB PO SCH (08:04)
[2020-08-14] MEDS: DULoxetine HCL 60 MG CAPSULE.DR PO SCH (08:04)
[2020-08-14] MEDS: ISOSORBIDE MONONITRATE ER 60 MG TAB.ER.24H PO SCH (08:05)
[2020-08-14] MEDS: INSULIN ASPART (NovoLOG) 100 UNIT/ML VIAL SQ SCH ×2 (08:05→12:49)
[2020-08-14] MEDS: PANTOPRAZOLE 40 MG/10 ML VIAL IV SCH (08:05)
[2020-08-14 10:02] LABS: Anion Gap 8.4 mmol/L (4.00-12.00); BUN/Creat Ratio 21.25 Ratio (12.00-20.00); Calcium 8.2 mg/dL (8.7-10.3); Carbon Dioxide 18.6 mmol/L (21.6-31.8); Non-African American GFR(CKD) 74.2 (60.0-200.0)
[2020-08-14 11:07] LABS: Glucose,Whole Blood 142 mg/dL (75-99)
[2020-08-14] MEDS ORDERED: METOPROLOL TARTRATE 50 MG TAB PO SCH (11:15)
[2020-08-14 12:00] VITALS: BP 158/68; PULSE 94; RESP 16; TEMP 98.1
[2020-08-14] MEDS: SODIUM CHLORIDE 0.9% 1,000 ML IV SCH (12:50)
--- NOTE | 2020-08-14 13:20 | P.PN ---
Subjective Progress Note Date: 08/14/20 Principal diagnosis: Anemia The patient was seen and examined at the bedside. She is sitting up in bed. She states she is feeling much better. She denies any nausea, vomiting, or abdominal pain. Is not having any further evidence of any GI bleed. She is status post 4 units of PRBC this admission. Hemoglobin is stable at 10.8. She underwent an EGD yesterday with Endo Clip [place] 2, gold probe ablation and epinephrine. Objective - Vital Signs Vital signs: Vital Signs Temp 98.1 F 08/14/20 11:59 Pulse 94 08/14/20 11:59 Resp 16 08/14/20 11:59 BP 158/68 08/14/20 11:59 Pulse Ox 94 L 08/14/20 11:59 Intake & Output 08/13/20 08/14/20 08/14/20 18:59 06:59 18:59 Intake Total 450 1490 Output Total 1000 Balance -550 1490 Intake: IV 450 600 0.9 NaCl- 150 Sodium Chloride 0.9% 1, 100 600 000 ml @ 50 mls/hr IV . Q20H [facility] Rx#:[id number] Oral 890 Output: Urine 1000 Other: Voiding Method Bedpan Bedpan Bedpan # Voids 3 # Bowel Movements 2 1 - Exam General appearance: The patient is alert, oriented, in no acute distress. HET: Head is normocephalic and atraumatic. Conjunctiva pink. Sclera anicteric. Neck: Supple without lymphadenopathy. Abdomen: Soft, nontender, nondistended with bowel sounds. No guarding or rigidity. Extremities: Normal skin color and turgor. No pedal edema Neurological: No focal deficits. Alert and oriented 3. - Labs CBC & Chem 7: 08/14/20 04:35 08/14/20 04:35 Labs: Abnormal Lab Results - Last 24 Hours (Table) 08/13/20 08/13/20 08/13/20 Range/Units 16:45 18:15 20:58 RBC 3.60 L (3.80-5.40) m/uL Hgb 10.6 L (11.4-16.0) gm/dL Hct (34.0-46.0) % MCHC 30.7 L (31.0-37.0) g/dL RDW 17.8 H (11.5-15.5) % Plt Count 145 L (150-450) k/uL Lymphocytes # 0.9 L (1.0-4.8) k/uL Lymphocytes # (Manual) (1.0-4.8) k/uL Metamyelocytes # (Man) (0) k/uL Myelocytes # (Manual) (0) k/uL Nucleated RBCs (0-0) /100 WBC Chloride (96-109) mmol/L Carbon Dioxide (21.6-31.8) mmol/L BUN/Creatinine Ratio (12.00-20.00) Ratio Glucose (70-110) mg/dL POC Glucose (mg/dL) 118 H 128 H (75-99) mg/dL Calcium (8.7-10.3) mg/dL 08/14/20 08/14/20 08/14/20 Range/Units 04:35 04:35 07:14 RBC 3.57 L (3.80-5.40) m/uL Hgb 10.8 L (11.4-16.0) gm/dL Hct 33.7 L (34.0-46.0) % MCHC (31.0-37.0) g/dL RDW 18.0 H (11.5-15.5) % Plt Count 131 L (150-450) k/uL Lymphocytes # (1.0-4.8) k/uL Lymphocytes # (Manual) 0.52 L (1.0-4.8) k/uL Metamyelocytes # (Man) 0.06 H (0) k/uL Myelocytes # (Manual) 0.06 H (0) k/uL Nucleated RBCs 8 H (0-0) /100 WBC Chloride 113 H (96-109) mmol/L Carbon Dioxide 18.6 L (21.6-31.8) mmol/L BUN/Creatinine Ratio 21.25 H (12.00-20.00) Ratio Glucose 123 H (70-110) mg/dL POC Glucose (mg/dL) 141 H (75-99) mg/dL Calcium 8.2 L (8.7-10.3) mg/dL 08/14/20 Range/Units 11:05 RBC (3.80-5.40) m/uL Hgb (11.4-16.0) gm/dL Hct (34.0-46.0) % MCHC (31.0-37.0) g/dL RDW (11.5-15.5) % Plt Count (150-450) k/uL Lymphocytes # (1.0-4.8) k/uL Lymphocytes # (Manual) (1.0-4.8) k/uL Metamyelocytes # (Man) (0) k/uL Myelocytes # (Manual) (0) k/uL Nucleated RBCs (0-0) /100 WBC Chloride (96-109) mmol/L Carbon Dioxide (21.6-31.8) mmol/L BUN/Creatinine Ratio (12.00-20.00) Ratio Glucose (70-110) mg/dL POC Glucose (mg/dL) 142 H (75-99) mg/dL Calcium (8.7-10.3) mg/dL Assessment and Plan (1) Melena Narrative/Plan: 70-year-old female presented to the hospital with complaints of weakness and anemia as well as melena. Patient has multiple medical comorbidities and prese nted after being found to have a hemoglobin of 4.3 at the outside hospital. 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 She reports recent episodes of melanotic stool. Unclear etiology, differential includes recurrence of AVM, peptic ulcer disease, esophagitis, gastritis or other etiology. 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 She also had mild gastritis and a gastric polyp. No biopsies were taken in setting of active GI bleed. Would recommend referral to a tear tertiary institution for evaluation by advancement endoscopy with endoscopic ultrasound to rule out some mucosal pathology. Current Visit: Yes Status: Acute Code(s): K92.1 - MELENA SNOMED Code(s): 5749094 (2) GI hemorrhage Current Visit: Yes Status: Acute Code(s): K92.2 - GASTROINTESTINAL HEMORRHAGE, UNSPECIFIED SNOMED Code(s): 19152214 (3) Anemia associated with acute blood loss Current Visit: Yes Status: Acute Code(s): D62 - ACUTE POSTHEMORRHAGIC ANEMIA SNOMED Code(s): 559258109 Plan: Supportive Care Full liquid diet Continue to Hold anticoagulation therapy Protonix by mouth twice daily Follow-up with gastroenterology in one week, recommend referral to a tertiary in stitution for evaluation by advanced endoscopy with endoscopic ultrasound The impression and plan of care has been dictated as directed. I performed a history and examination of this patient, discussed the same with the dictator. I agree with the dictator's note ,documented as a scribe. Any additional findings or plans will be noted.
--- NOTE | 2020-08-16 00:45 | P.DS ---
Providers Date of admission: 08/12/20 01:43 Expected date of discharge: 08/14/20 Attending physician: Malcolm Baig Consults: 08/12/20 01:18 Consult Physician Routine Consulting Provider: Mikki Alan Consult Reason/Comments: GI bleed, history of gastric AV malformation Do you want consulting provider notified?: Yes, Notify in am Consult Physician Stat Consulting Provider: Ghanshyam Casanova Consult Reason/Comments: ICU Do you want consulting provider notified?: Already Contacted Primary care physician: [facility] Course: Chief Complaint: Weakness and dark stools History of presenting complaint: This is a 70-year-old patient follows with Dr. Soto. Chronic stable medical conditions include coronary artery disease with stent, diabetes mellitus type II, GERD, hypertension, hyperlipidemia, scleroderma systemic features, history of gastric AV malformation bleeding. Patient initially presented to [facility] feeling weak diet unknown. For last 5 or 6 days patient been having black stools. Patient is on Plavix and also takes Aleve for body aches and pains. She was transferred down here. Initial hemoglobin was less than 5. 4 units of blood were given. Patient's daughter the bedside. No chest pain.EGD by Dr. Louis. Found to have a very prominent gastric fold of the cardia. Superficial ulcerations. Biopsy was done. Underlying mass cannot be ruled out Today-patient tolerating her diet. Hemoglobin stable. Feeling well. Patient follow-up with Dr. Louis in the outpatient. No NSAIDs. Patient told to hold the Plavix till seen by veterans employment representative START in 3 days which are was earlier. Discussion and discharge planning more than 35 minutes Consultation: Dr. Louis from GI Physical examination: VITAL SIGNS: 98.1, 74, 16, 158/68, 94% room air GENERAL: Laying in bed, comfortable EYES: [Pupils equal. Conjunctiva pale. NECK: JVD not raised; masses not palpable. HEART: First and second heart sounds are normal; no edema. LUNGS: Respiratory rate normal; clear to auscultation. ABDOMEN: Soft, nontender, liver spleen not palpable, no masses palpable. PSYCH: Alert and oriented x3; mood and affect normal EXTREMITIES: Bilateral below-knee amputation. INVESTIGATIONS, reviewed in the clinical context: White count 5.8 hemoglobin 10.8 White count 9.8 hemoglobin 4.9 platelets 216 potassium 4.5 Bun*60 creatinine 1.29 Previous testing: Bun 11 creatinine 0.71 from December 2018 Assessment: -Acute GI bleed in a patient is on Plavix also taking Aleve . 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 with ulcerations -Acute severe blood loss anemia-patient received 4 units of blood -Suspect acute kidney injury possibly combination of hypertension and patient taking NSAIDs, likely ATN -Coronary artery disease with history of stent and coronary bypass -Diabetes mellitus type 2 -GERD -Essential hypertension -Hyperlipidemia -Scleroderma systemic features -Hypothyroid Disposition: Home Patient Condition at Discharge: Stable Plan - Discharge Summary Discharge Rx Participant: No New Discharge Prescriptions: Continue Omeprazole 20 mg PO BID Simvastatin [Zocor] 40 mg PO HS Isosorbide Mononitrate ER [Imdur] 60 mg PO DAILY Ezetimibe [Zetia] 10 mg PO DAILY DULoxetine HCL [Cymbalta] 60 mg PO DAILY Metoprolol Tartrate [Lopressor] 50 mg PO BID Levothyroxine Sodium [Synthroid] 50 mcg PO DAILY Nitroglycerin Sl Tabs [Nitrostat] 0.4 mg SUBLINGUAL Q5M PRN PRN Reason: Chest Pain sitaGLIPtin PHOSPHATE [Januvia] 50 mg PO DAILY Changed Losartan Potassium 100 mg PO HS #0 Discontinued amLODIPine [Norvasc] 10 mg PO DAILY Clopidogrel Bisulfate [Plavix] 75 mg PO DAILY Famotidine [Pepcid] 20 mg PO BID Discharge Medication List DULoxetine HCL [Cymbalta] 60 mg PO DAILY 09/09/17 [History] Ezetimibe [Zetia] 10 mg PO DAILY 09/09/17 [History] Isosorbide Mononitrate ER [Imdur] 60 mg PO DAILY 09/09/17 [History] Omeprazole 20 mg PO BID 09/09/17 [History] Simvastatin [Zocor] 40 mg PO HS 09/09/17 [History] Metoprolol Tartrate [Lopressor] 50 mg PO BID 12/07/18 [History] Levothyroxine Sodium [Synthroid] 50 mcg PO DAILY 08/12/20 [History] Nitroglycerin Sl Tabs [Nitrostat] 0.4 mg SUBLINGUAL Q5M PRN 08/12/20 [History] sitaGLIPtin PHOSPHATE [Januvia] 50 mg PO DAILY 08/12/20 [History] Losartan Potassium 100 mg PO HS #0 08/14/20 [Rx] Follow up Appointment(s)/Referral(s): veterans employment representativedr [Other] - 1 Week Chance Soto MD [Primary Care Provider] - 08/22/20 1:30 pm (You will see rachel sorensen and this is the [place] [facility].) Sandoval Chisholm MD [STAFF PHYSICIAN] - 10 Days (Please call and schedule appointment.) Patient Instructions/Handouts: Anemia (DC), Melena (ED) Activity/Diet/Wound Care/Special Instructions: cbc- 5 days hold plavix till seen by veterans employment representative or start in 3 days Discharge Disposition: HOME SELF-CARE
== END 2020-08-14 15:01 | disposition home or self-care (01) | DRG 377 ==
LOC: EC 00:55 → 2SICU 01:43 → 6NMEDSUR 08-13 20:23
PROVIDERS: ADMIT Hospitalist; ATTEND Hospitalist
PROC: 30233N1 Transfusion of Nonautologous Red Blood Cells into Peripheral Vein, Percutaneous Approach (ICD-10-PCS; principal; 2020-08-12)
PROC: 0DJ08ZZ Inspection of Upper Intestinal Tract, Via Natural or Artificial Opening Endoscopic (ICD-10-PCS; 2020-08-13 11:15)
PROC: 0W3P8ZZ Control Bleeding in Gastrointestinal Tract, Via Natural or Artificial Opening Endoscopic (ICD-10-PCS; 2020-08-13 11:15)
DX: K31.811 Angiodysplasia of stomach and duodenum with bleeding (principal); N17.0 Acute kidney failure with tubular necrosis; D62 Acute posthemorrhagic anemia; I48.20 Chronic atrial fibrillation, unspecified; K29.70 Gastritis, unspecified, without bleeding; K31.7 Polyp of stomach and duodenum; M34.9 Systemic sclerosis, unspecified; E03.9 Hypothyroidism, unspecified; E11.9 Type 2 diabetes mellitus without complications; E78.5 Hyperlipidemia, unspecified; F32.9 Major depressive disorder, single episode, unspecified; F41.9 Anxiety disorder, unspecified; I10 Essential (primary) hypertension; I25.10 Atherosclerotic heart disease of native coronary artery without angina pectoris; I73.00 Raynaud's syndrome without gangrene; J44.9 Chronic obstructive pulmonary disease, unspecified; K21.9 Gastro-esophageal reflux disease without esophagitis; Z79.02 Long term (current) use of antithrombotics/antiplatelets; Z79.84 Long term (current) use of oral hypoglycemic drugs; Z79.890 Hormone replacement therapy; Z79.899 Other long term (current) drug therapy; Z80.0 Family history of malignant neoplasm of digestive organs; Z82.49 Family history of ischemic heart disease and other diseases of the circulatory system; Z82.5 Family history of asthma and other chronic lower respiratory diseases; Z83.3 Family history of diabetes mellitus; Z89.511 Acquired absence of right leg below knee; Z89.512 Acquired absence of left leg below knee; Z90.710 Acquired absence of both cervix and uterus; Z95.1 Presence of aortocoronary bypass graft; Z95.5 Presence of coronary angioplasty implant and graft; Z90.49 Acquired absence of other specified parts of digestive tract; T45.515A Adverse effect of anticoagulants, initial encounter; T39.395A Adverse effect of other nonsteroidal anti-inflammatory drugs [NSAID], initial encounter; Z88.8 Allergy status to other drugs, medicaments and biological substances; Z88.1 Allergy status to other antibiotic agents; Z91.040 Latex allergy status; R13.10 Dysphagia, unspecified; Z95.0 Presence of cardiac pacemaker; M19.90 Unspecified osteoarthritis, unspecified site; Z87.440 Personal history of urinary (tract) infections; D50.9 Iron deficiency anemia, unspecified
CPT/HCPCS: 36415; 43243; 43255; 80048; 80053; 85025; 85610; 85730; 86850; 86870; 86880; 86900; 86901; 86902; 86920; 96374; 99291